=== PATIENT | female | born 1960 | race Caucasian/White ===

== ENCOUNTER → 2024-12-23 14:52 | Outpatient (CLI) | payer OTHER, SELFPAY ==
--- NOTE | 2024-12-23 | DI.MRI.S_ITS ---
PROCEDURE: MR CERVICAL SPINE WO CON INDICATIONS: radiculopathy TECHNIQUE: Noncontrast sagittal T1 spin echo and T2 fast spin echo, sagittal STIR, foraminal oblique sagittal T2 fast spin echo, and axial gradient echo or T2 fast spin echo through the cervical spine. COMPARISON: None. FINDINGS: Image quality: Excellent. Alignment and Curvature: Reversal of the usual cervical lordosis centered at C4-5. No sagittal listhesis. Bone Marrow: Marrow demonstrates normal overall signal. Spinal Cord: Visualized spinal cord has normal size and signal. No cerebellar tonsillar herniation. Paraspinous Soft Tissues: No paravertebral masses. Prevertebral soft tissues are normal in thickness. C2-C3: Normal appearance. C3-C4: Degenerated disc osteophyte complex indents the anterior thecal sac but does not result in significant spinal canal stenosis. No neural foraminal stenosis. C4-C5: Mild spinal canal stenosis due to degenerate disc osteophyte complex. Bilateral moderate neural foraminal stenosis due to uncovertebral greater than facet arthrosis. C5-C6: Degenerated disc osteophyte complex indents the anterior thecal sac but does not result in significant spinal canal stenosis. Mild bilateral neural foraminal stenosis due to uncovertebral and facet arthrosis. C6-C7: Normal appearance. C7-T1: Normal appearance. IMPRESSION: 1. Mild spinal canal stenosis at C4-5 with multilevel degenerated discs. 2. Moderate neural foraminal stenosis bilaterally at C4-5 and mild bilaterally at C5-6. Dictated by: Buster Ramos M.D. on 12/23/2024 at 16:03 Approved by: Buster Ramos M.D. on 12/23/2024 at 16:09
--- NOTE | 2024-12-23 15:37 | DI.MRI.S_ITS ---
PROCEDURE: MR LUMBAR SPINE WO CON INDICATIONS: radiculopathy TECHNIQUE: Noncontrast sagittal T1 spin echo and T2 fast echo, sagittal STIR, and T2 fast spin echo through the lumbar spine. In cases with scoliosis, additional coronal T2 fast spin echo may be performed. COMPARISON: None. FINDINGS: Image quality: Excellent. Alignment and Curvature: There is normal bony alignment. Bone Marrow: Marrow is of normal overall signal. No acute vertebral body compression fractures. Spinal Cord: Conus medullaris terminates at the T12-L1 level. Visualized cord demonstrates normal signal and size. Paraspinous Soft Tissues: No paravertebral masses. T12-L1: Normal appearance. L1-L2: Degenerated, asymmetric subarticular and extraforaminal bulging disc which abuts the extraforaminal right L1 nerve. No neural foraminal stenosis. L2-L3: Mild spinal canal stenosis due to a left asymmetric bulging disc, ligamentum flavum thickening, epidural lipomatosis. Mild left neural foraminal stenosis due to subarticular bulging disc. No right neural foraminal stenosis. L3-L4: Moderate left lateral recess and mild spinal canal stenosis due to a a left central to extraforaminal asymmetric bulging disc, ligamentum flavum thickening, and facet arthrosis. Mild bilateral neural foraminal stenosis due to subarticular bulging disc and facet arthrosis. L4-L5: Changes of left laminotomy. No spinal canal stenosis. There is thickening of the right ligamentum flavum. Moderate bilateral neural foraminal stenosis due to facet arthrosis. L5-S1: No spinal canal stenosis. Mild bilateral facet arthrosis. No neural foraminal stenosis. IMPRESSION: 1. Changes of left L4-5 laminotomy. 2. Moderate left lateral recess stenosis at L3-4 with multilevel mild spinal canal stenosis. 3. Multilevel neural foraminal stenosis reaches moderate bilaterally at L4-5, and mild at L2-3 and L3-4. Dictated by: Buster Ramos M.D. on 12/23/2024 at 16:20 Approved by: Buster Ramos M.D. on 12/23/2024 at 16:25
== END ==
LOC: MRI 14:53
PROVIDERS: Family Provider Family Medicine; PCP Family Medicine; Referring Provider Family Medicine; Visit Provider Family Medicine
DX: M54.12 Radiculopathy, cervical region (principal); M54.17 Radiculopathy, lumbosacral region; M48.02 Spinal stenosis, cervical region; M48.061 Spinal stenosis, lumbar region without neurogenic claudication
CPT/HCPCS: 72141; 72148

== ENCOUNTER 2025-03-10 09:48 | Outpatient (CLI) | payer OTHER, SELFPAY ==
[2025-03-10 10:50] VITALS: BP 111/51; PULSE 85; RESP 16; TEMP 36.2; O2SAT 97
[2025-03-10 11:15] VITALS: BP 106/53; PULSE 75; RESP 16; O2SAT 98
[2025-03-10] MEDS: LIDOCAINE 1% (PF) 5 ML 10 ML INJ (11:18)
[2025-03-10 11:20] VITALS: BP 106/63; PULSE 75; RESP 16; O2SAT 99
[2025-03-10 11:24] VITALS: BP 114/57; PULSE 69; RESP 16; O2SAT 97
--- NOTE | 2025-03-10 13:22 | PM.PROC.IR.1 ---
Date/Time/Diagnoses Date of procedure: 03/10/25 Time of procedure: 11:00 Pre-procedure diagnosis: Cervicothoracic radiculopathy Post-procedure diagnosis: same Procedure Notes Procedure: Interlaminar epidural steroid injection C7-T1 Indications: Cervicothoracic radiculopathy Physician: Jasper Christine Total sedation minutes: 0 Complications: none Procedure in detail & Post-procedure care: Patient is here for the planned procedure today as noted. No significant change since the last office visit. For additional clinical scenario please see those office notes. Focused exam: Vital signs reviewed as charted on intake. Gen: Well developed. No acute distress. CV: RRR, no M/R/G Chest: Non-labored breathing, CTAB. Psych: Alert and well-oriented. Mood/Affect: normal. Patient suitable for the planned procedure today: Yes === The following procedure was performed in the office today: Cervical Epidural Steroid Injection with fluoroscopic guidance - Interlaminar approach (33575) Levels Treated: C7-T1 Approach: interlaminar Soft tissue: [1% lidocaine 2 mL] Test dose: 1% lidocaine 1 mL Injectate: [1.5 mL dexamethasone (10mg/mL), 1 mL lidocaine 1%, 1.5 mL normal saline] Fluoroscopy Agent: Isovue 300-M 1.5 mL Notes: 3.5 in 20 gauge Touhy needle utilized and adequate. Preprocedure pain 5/10, postprocedure pain 2/10. Procedure: After discussing the risks, benefits, and alternatives to the procedure, the patient expressed understanding and wished to proceed. The risks include but are not limited to infection, allergic reaction, nerve damage, stroke, paralysis, epidural hematoma, syncope, headache, respiratory or cardiac arrest, spinal cord injury, and scar formation. Informed consent was obtained and all patient questions were answered. The patient was brought to the procedure suite and placed in the prone position. A pre-procedural pause was conducted to verify: correct patient identity, procedure to be performed and as applicable, correct side and site, correct patient position, and any special requirements. Using a paramedian approach from the side noted above, the region overlying the target was localized under fluoroscopic visualization and the soft tissues overlying this structure were infiltrated with the anesthetic listed above. With fluoroscopic guidance, a #20 gauge Tuohy needle (unless otherwise noted) was inserted into the epidural space using a paramedian approach. The epidural space was localized utilizing intermittent multiplanar fluoroscopic guidance and loss of resistance technique. After negative aspiration, the contrast noted above was injected into the epidural space and the flow of contrast was observed, confirming epidural spread without evidence of intravascular or intrathecal spread. Multi-planar radiographs were obtained for documentation purposes. A test dose of lidocaine was given and the patient was observed for 30-60 seconds. There were no adverse reactions noted. Subsequently, the injectate as noted above was administered into the level noted above. The patient tolerated the procedure well and was discharged after an appropriate period of observation. If there are any complications, the patient was instructed to call us. The patient is to follow-up with the requesting provider in 2-3 weeks/as planned. This note was compiled using voice recognition software and therefore may contain typos. Please contact the author with any questions or concerns.
--- OUTSIDE RECORDS SUMMARY | 2025-03-12 14:34 | XMS_ITS | Encounter Summary ---
Author Organization [facility] Address [facility] [address] Care Team Providers Care Senior Clerk Name Role Phone Ronaldo Gibbs MD Primary Care Provider [phone] Encounter Details Date Type Department Care Team (Late st Contact Info) Description 06/26/2021 Scanned Document SCANNED ONLY Scanned, Document Social History Tobacco Use Types Packs/Day Years Used Date Smoking Tobacco: Never Assessed Comments Unknown Sex and Gender Information Value Date Recorded Sex Assigned at Not on file Legal Sex Female 6:34 PM PDT Gender Identity Not on file Sexual Orientation Not on file documented as of this encounter Plan of Treatment Not on file documented as of this encounter Visit Diagnoses Not on filedocumented in this encounter Care Teams Senior Clerk Relationship Specialty Start Date End Date Ronaldo Gibbs MD [address] [place] [address] PCP - General Family Medicine 07/18/21 documented as of this encounter
--- OUTSIDE RECORDS SUMMARY | 2025-03-12 14:34 | XMS_ITS | Encounter Summary ---
Author Organization [facility] Address [facility] [address] Care Team Providers Care Heart Doctor Name Role Phone Ronaldo Gibbs MD Primary Care Provider [phone] Encounter Details Date Type Department Care Team (Late st Contact Info) Description 06/21/2021 Scanned Document SCANNED ONLY Scanned, Document Social [...] on filedocumented in this encounter Care Teams Heart Doctor Relationship Specialty Start Date End Date Ronaldo Gibbs MD [address] [place] [id number] PCP - General Family Medicine 07/18/21 documented as of this encounter
--- OUTSIDE RECORDS SUMMARY | 2025-03-12 14:34 | XMS_ITS | Encounter Summary ---
Author Organization [facility] Address [address] [place] [address] Care Team Providers Care Prescription Eyeglass Maker Name Role Phone Ronaldo Gibbs MD Primary Care Provider [phone] Encounter Details Date Type Department Care Team (Latest Contact Info) Description 03/05/2016 [facility] [place] [address] [place], [place] [id number] Ronaldo Gibbs MD [address] [place] [address] Urinary tract infection Social History Tobacco Use Types Packs/Day Years Used Date Smoking Tobacco: Never Assessed Comments Unknown Sex and Gender Information Value Date Recorded Sex Assigned at Not on file Legal Sex Female 6:34 PM PDT Gender Identity Not on file Sexual Orientation Not on file documented as of this encounter Plan of Treatment Not on file documented as of this encounter Procedures Procedure Name Priority Date/Time Associated Diagnosis Comments URINE CULTURE Routine 03/05/2016 2:10 PM PST Urinary tract infection documented in this encounter Results * Urine Culture (03/05/2016 2:10 PM PST) Culture 10,000 - 50,000 cfu/mL Escherichia coli ERROL INTERPRETATION 03/06/2016 10:36 PM [facility] Urine URINE / Unknown 03/05/2016 2 :10 PM PST 03/05/2016 6:07 PM PST Narrative Organism Antibiotic Method Susceptibility Escherichia coli Amoxicillin + Clavulanate ERROL INTERPR ETATION <=2 ug/mL: Susceptible Escherichia coli Ampicillin ERROL INTERPRETATION <=2 ug/mL: Susceptible Escherichia coli Cefazolin ERROL INTERPRETATION <=4 ug/mL: Susceptible Escherichia coli Cefepime ERROL INTERPRETATION <=1 ug/mL: Susceptible Escherichia coli Cefoxitin ERROL INTERPRETATION <=4 ug/mL: Susceptible Escherichia coli Ceftazidime ERROL INTERPRETATION <=1 ug/mL: Susceptible Escherichia coli Ceftriaxone ERROL INTERPRETATION <=1 ug/mL: Susceptible Escherichia coli Ciprofloxacin ERROL INTERPRETATION <=0.25 ug/mL: Susceptible Escherichia coli Ertapenem ERROL INTERPRETATION <=0.5 ug/mL: Susceptible Escherichia coli Gentamicin ERROL INTERPRETATION <=1 ug/mL: Susceptible Escherichia coli Meropenem ERROL INTERPRETATION <=0.25 ug/mL: Susceptible Escherichia coli Nitrofurantoin ERROL INTERPRETATION <=16 ug/mL: Susceptible Escherichia coli Piperacillin + Tazobactam ERROL INTERPR ETATION <=4 ug/mL: Susceptible Escherichia coli Tetracycline ERROL INTERPRETATION <=1 ug/mL: Susceptible Escherichia coli Tobramycin ERROL INTERPRETATION <=1 ug/mL: Susceptible Escherichia coli Trimethoprim + Sulfamethoxazole ERROL INTERPRETATION <=1/19 ug/mL: Susceptible Ronaldo Gibbs MD MICROBIOLOGY - GENERAL ORDERABL ES Final Result [facility] [address] [place] [address] documented in this encounter Visit Diagnoses Diagnosis Urinary tract infection Urinary tract infection, site not specified documented in this encounter Care Teams Prescription Eyeglass Maker Relationship Specialty Start Date End Date Ronaldo Gibbs MD [address] [place] [address] PCP - General Family Medicine 07/18/21 documented as of this encounter
--- OUTSIDE RECORDS SUMMARY | 2025-03-12 14:34 | XMS_ITS | Encounter Summary ---
Author Organization [facility] Address [facility] [address] Care Team Providers Care Linotype Mechanic Name Role Phone Ronaldo Gibbs MD Primary Care Provider [phone] Reason for Referral * Specialty Services (Routine) - Closed Specialty Diagnoses / Procedures Referred By Contvale t Referred To Contact Cardiology Diagnoses Other right bundle-branch block Procedures TX OFFICE/OUTPATIENT ESTABLISHED MOD MDM 30-39 MIN Ronaldo Gibbs MD [address] [place] [address] Phone: tel: fax: CARDIOLOGY - [facility] [address] [address] Phone: tel: fax: Referral ID Status Reason Start Date Expiration Date Visits Re quested Visits Authorized [id number] Closed 07/18/2021 07/18/2022 1 1 Encounter Details Date Type Department Care Team (Latest Contact Info) Description 07/18/2021 Order Full Time Staff Interpreter CARDIOLOGY [facility] [id number] [address] Ronaldo Gibbs MD [address] [place] [address] Other right bundle-branch block Social History Tobacco Use Types Packs/Day Years Used Date Smoking Tobacco: Never Assessed Comments Unknown Sex and Gender Information Value Date Recorded Sex Assigned at Not on file Legal Sex Female 6:34 PM PDT Gender Identity Not on file Sexual Orientation Not on file documented as of this encounter Plan of Treatment Scheduled Referrals Name Type Priority Associated Diagnoses Order Schedule Ambulatory referral to Cardiology Outpatient Referral Routine Other right bundle-branch block Ordered: 07/18/2021 documented as of this encounter Visit Diagnoses Diagnosis Other right bundle-branch block documented in this encounter Care Teams Linotype Mechanic Relationship Specialty Start Date End Date Ronaldo Gibbs MD [address] [place] [address] PCP - General Family Medicine 07/18/21 documented as of this encounter
--- OUTSIDE RECORDS SUMMARY | 2025-03-12 14:34 | XMS_ITS | Encounter Summary ---
Author Organization [facility] Address [facility] [address] Care Team Providers Care Straightening Press Operator Name Role Phone Ronaldo Gibbs MD Primary Care Provider [phone] Encounter Details Date Type Department Care Team (Late st Contact Info) Description 06/19/2021 Scanned Document SCANNED ONLY Scanned, Document Social [...] on filedocumented in this encounter Care Teams Straightening Press Operator Relationship Specialty Start Date End Date Ronaldo Gibbs MD [address] [place] [address] PCP - General Family Medicine 07/18/21 documented as of this encounter
--- OUTSIDE RECORDS SUMMARY | 2025-03-12 14:34 | XMS_ITS | Encounter Summary ---
Author Organization [facility] Address [address] [place] [address] Care Team Providers Care Radiation Safety Officer Name Role Phone Ronaldo Gibbs MD Primary Care Provider [phone] Encounter Details Date Type Department Care Team (Latest Contact Info) Description 10/13/2015 [facility] [place] [address] [place] [id number] Ronaldo Gibbs MD [address] [place] [address] Urinary tract infection Social History Tobacco [...] Date/Time Associated Diagnosis Comments URINE CULTURE Routine 10/13/2015 11:30 AM PDT Urinary tract infection documented in this encounter Results * Urine Culture (10/13/2015 11:30 AM PDT) Culture 10,000 - 50,000 cfu/mL Escherichia coli ERROL INTERPRETATION 10/15/2015 11:25 PM PDT [facility] Urine URINE / Unknown 10/13/2015 1 1:30 AM PDT 10/13/2015 6:01 PM PDT Narrative Organism Antibiotic Method Susceptibility Escherichia coli Amoxicillin + Clavulanate ERROL INTERPR ETATION <=2 ug/mL: Susceptible Escherichia coli Ampicillin ERROL INTERPRETATION 8 ug/mL: Susceptible Escherichia coli Cefazolin ERROL INTERPRETATION <=4 ug/mL Escherichia coli Cefepime ERROL INTERPRETATION <=1 ug/mL: [...] ug/mL: Susceptible Escherichia coli Tetracycline ERROL INTERPRETATION 2 ug/mL: Susceptible Escherichia coli Tobramycin ERROL INTERPRETATION <=1 ug/mL: Susceptible Escherichia coli Trimethoprim + Sulfamethoxazole ERROL INTERPRETATION <=1/19 ug/mL: Susceptible Ronaldo Gibbs MD MICROBIOLOGY - GENERAL ORDERABL ES Final Result [facility] [address] [place], [place] [address] documented in this encounter Visit Diagnoses Diagnosis Urinary tract infection Urinary tract infection, site not specified documented in this encounter Care Teams Radiation Safety Officer Relationship Specialty Start Date End Date Ronaldo Gibbs MD [address] [place] [address] PCP - General Family Medicine 07/18/21 documented as of this encounter
--- OUTSIDE RECORDS SUMMARY | 2025-03-12 14:34 | XMS_ITS | Continuity of Care Document ---
Author Organization [facility], Main Office Address [address] [place] [address] Assessment Encounter Date Assessment Date Assessment LastModified by Organization Details LastModified Time 12/15/2024 12/15/2024 Patient presente d to office today for their Medicare Annual Wellness Visit. Education was provided on healthy nutrition, including a diet rich in fruits and vegetables, minimizing simple carbohydrates, salt, and saturated fats. Encouraged regular cardiovascular exercise such as walking at least 30 minutes daily, 5 times per week. Emphasized preventive health measures and educated pt on fall prevention and community-based lifestyle interventions to help reduce health risks and promote healthy living. chang Not available 12/15/2024 12:36:23 Plan of Treatment Reminders Order Date Submit Date Provider Last Modified By Organization Details Last Modified Time Details Appointments None recorded. Lab fecal occult blood, immunoassay , stool 2024 025 EDMOND [facility], [address] [place], [address], 13:17:48 Referral None recorded. Procedures None recorded. Surgeries None recorded. Imaging DEXA, axial skeleton + vertebral fracture assessment 2024 025 [facility], [address] [place], [address], 23:52:20 electrocard iogram 2024 025 [email or web address] 7 Main Office, [address] [place], [address], 01:59:15 Medication Orders Zepbound 2.5 mg/0.5 mL subcutaneou s solution 2024 025 [facility], [address], [place], [place], [phone], 13:27:32 Patient TargetsNo targets recorded. Patient Instructions Encounter Date Encounter Id Patient Instructions Last Modified By Organization Details Last Modified Time 12/15/2024 [id number] advance care planning: care instructions chang Not available 12/15/2024 13:17:36 Discussed and explained advance directives such as standard forms to the patient. Face to face discussion lasted for a duration of __1_ minutes. chang Not available 12/15/2024 13:26:48 Reason for Referral None Reported. Results Created Date Observation Date Name Description Value Unit Range Abnormal Flag Note LastModifiedBy Organization Detail LastModifiedTime 12/16/19 [facility] stephie lowe am No observ ation record ed. chang Main Office [address] [place] [address], [phone], 12/16/2024 01:59:12 12/16/19 [facility] stephie lowe am No observ ation record ed. chang Not Available 12/20 20:01:32 12/24/19 25 12/23/2024 MRI, cervi john spine , w/o contr ast No observ ation record ed. [email or web address] [place] [address], [address], 12/28/2024 17:30:41 12/24/19 25 12/23/2024 MRI, lumba r spine , w/o contr ast No observ ation record ed. [email or web address] [place] [address] [facility] [address] [place] [address], [address], 12/28/2024 17:30:54 01/15/20 25 01/14/2025 audio gram + tympa nogra m No observ ation record ed. [facility] [address] [place], [address], 02/16/2025 15:02:38 01/20/20 25 01/19/2025 MAMMO , scree yasemin, digit al, bilat eral No observ ation record ed. EDMOND [facility] [address] [place], [address], 02/16/2025 15:02:37 02/04/20 25 02/03/2025 DEXA, axial skele ton + verte bral fract ure asses sment No observ ation record ed. [facility] [address] [place], [address], 02/16/2025 15:02:37 Result Notes None recorded. Problems Name Problem SNOMED Code Status Onset Date Resolution Date Notes Provider Name and Address Organization Details Recorded Time Migraine 30829623 Active Ronaldo Gibbs MD [address] [place] [address], [phone] , [facility] 19:16:17 Insomnia 055947854 Active Ronaldo Gibbs MD [address] [place] [address], [phone] , [facility] 19:16:37 Problem Notes None recorded. Procedures Surgical History Date Name Laterality Status Provider Name and Address Organization Details Recorded Time myringoplasty completed Ronaldo Gibbs MD [address] [place] [address], [phone], [facility] 04/04/2021 19:27:20 Back Surgery completed Ronaldo Gibbs MD [address] [place] [address], [phone], [facility] 04/04/2021 19:27:30 Hysterectomy completed Ronaldo Gibbs MD [address] [place] [address], [phone], [facility] 04/04/2021 19:27:50 Appendectomy completed Ronaldo Gibbs MD [address] [place] [address], [phone], [facility] 04/04/2021 19:27:56 reduction plasty of bilateral breasts completed Ronaldo Gibbs MD [address] [place] [address], [phone], [facility] 04/04/2021 19:28:07 Imaging Results None recorded. Procedure Notes None recorded. Medical Equipment None Reported. Allergies No known drug allergies Medications Name Sig Start Date Stop Date Status Note LastModified by Organization Details LastModified Time methocarbam ol 500 mg tablet TAKE TWO TABLETS BY MOUTH FOUR TIMES DAILY NEEDED 2024 active Not Available Not Available Not Avai lable neomycin-po lymyxin-hyd rocort 3.5 mg/mL-10,00 0 unit/mL-1 % ear solution 06/19 completed Not Available Not Available Not Available prednisone 10 mg tablet Take 4 tablets by mouth once daily for 2 days, then 3 tablets daily for 2 days,then 2 tablets daily for 2 days, 1 tablet daily for 2 days then (1/2) tablet daily for 2 days active Not Available Not Available No t Available trazodone 50 mg tablet TAKE TWO TABLETS BY MOUTH EVERY DAY AT BEDTIME active Not Available Not Available No t Available azithromyci n 250 mg tablet TAKE 2 TABLETS (500 MG) BY ORAL ROUTE ONCE DAILY FOR 1 DAY THEN 1 TABLET (250 MG) BY ORAL ROUTE ONCE DAILY FOR 4 DAYS 09/22 completed Not Available Not Available Not Available fluconazole 150 mg tablet Take 1 tablet every other day by oral route. 09/22 completed Not Available Not Available Not Available sumatriptan 100 mg tablet TAKE ONE-HALF TO ONE TABLET BY MOUTH AT ONSET OF MIGRAINE. MAY REPEAT AFTER 2 HOURS -- MAX OF 2 TABLETS IN 24 HOURS 2024 active Not Available Not Available Not Avai lable phentermine 15 mg capsule TAKE ONE CAPSULE BY MOUTH EVERY DAY 11/30 completed Not Available Not Available Not Available omeprazole 40 mg capsule,del ayed release Take 1 capsule every day by oral route. 11/30 completed Not Available Not Available Not Available triamcinolo ne acetonide 0.1 % topical cream Apply to affected area 1-2 x daily 01/17 completed Not Available Not Available Not Available codeine 10 mg-guaifene sin 100 mg/5 mL oral liquid TAKE 10ml BY MOUTH EVERY 4 HOURS NEEDED FOR cough active Not Available Not Available No t Available estriol micronized (bulk) 100 % powder 1 mg vag supposito r, insert vaginally 2-3x/week 2020 active Not Available Not Available Not Avai lable neomycin-po lymyxin-hyd rocort 3.5 mg-10,000 unit/mL-1 % ear drops,susp INSTILL 4 DROPS INTO AFFECTED EAR(S) BY OTIC ROUTE 3 TIMES PER DAY 06/19 completed Not Available Not Available Not Available Ciprodex 0.3 %-0.1 % ear drops,suspe nsion INSTILL 4 DROPS INTO AFFECTED EAR(S) BY OTIC ROUTE 2 TIMES PER DAY FOR 7 DAYS 06/19 completed Not Available Not Available Not Available nitrofurant oin monohydrate /macrocryst als 100 mg capsule Take 1 capsule every 12 hours by oral route. 01/17 completed Not Available Not Available Not Available mometasone 0.1 % topical solution 01/17 completed Not Available Not Available Not Available Zepbound 2.5 mg/0.5 mL subcutaneou s solution Inject 0.5 mL every week by subcutane ous route for 28 days. 2024 active Not Available Not Available Not Avai lable Zepbound 5 mg/0.5 mL subcutaneou s solution Inject 5 mg every week by subcutane ous route. 2024 active Not Available Not Available Not Avai lable Vitals Date Recorded Body height Body mass index (BMI) Body weight Systolic And Diastolic Provider Name and Address Organization Details Last Updated DateTime 12/15/2024 165.1 cm 25.5 kg/m2 87641.63 g 102/68 mm[Hg] Ronaldo Gibbs MD [address] [place], [address], [facility] 12/15/2024 13:35:16 Social History Question Answer Notes LastModified by Organizat ion Details LastModified Time Tobacco Smoking Status Former Smoker Ronaldo Gibbs MD [address] [place], [address], [place] [facility] 04/04/2021 19:26:09 Do You Have An Advance Directive? No [email or web address] Information not available 10/31/2023 What Is The Highest Grade Or Level Of School You Have Completed Or The Highest Degree You Have Received? [id number] [email or web address] Information not available 04/04/2021 When Did You Quit Smoking? 16+yearssinc elastcigaret te [email or web address] Information not available 04/04/2021 Do You Have A Medical Power Of Energy Advisor? No [email or web address] Information not available 10/31/2023 What Was The Date Of Your Most Recent Tobacco Screening? 11/30/2024 [email or web address] Information not available 11/30/2024 How Many Children Do You Have? 3 [email or web address] Information not available 04/04/2021 What Is Your Relationship Status? Information not available 04/04/2021 Has Tobacco Cessation Counseling Been Provided? No [email or web address] Information not available 06/15/2022 Sex: Unknown Functional Status Question Answer Note LastModified by Organizat ion Details LastModified Time Do you use any illicit or recreational drugs? No [email or web address] Information not available 04/04/2021 Do you or have you ever used any other forms of tobacco or nicotine? No [email or web address] Information not available 04/04/2021 What is your level of alcohol consumption? 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 Family History Relationship Description Onset Age of this Age Resolved Age Notes LastModified by Organization Details LastModified Time Maternal Grandmother Malignant neoplasm of breast chang Not available 04/04 19:24:36 Maternal Aunt Malignant neoplasm of breast chang Not available 04/04 19:24:36 Medical History Condition Response Headaches Y Gynecological HistoryNo gynecological history recorded. Obstetrics History GPAL:G 0 P 0 0 0 0 Immunizations Vaccine Type Date Status Note Provider Nam e and Address Organization Details Recorded Time COVID-19, mRNA, LNP-S, PF, 100 mcg/0.5mL dose or 50 mcg/0.25mL dose 1 completed Not Available [facility] 12/15/2024 12:23:24 COVID-19, mRNA, LNP-S, PF, 100 mcg/0.5mL dose or 50 mcg/0.25mL dose 1 completed Not Available [facility] 12/15/2024 12:23:24 COVID-19, mRNA, LNP-S, PF, 100 mcg/0.5mL dose or 50 mcg/0.25mL dose 1 completed Not Available [facility] 12/15/2024 12:23:24 Influenza, split virus, trivalent, PF 1 completed Not Available [facility] 12/15/2024 12:23:24 Influenza, split virus, trivalent, PF 4 completed Not Available [facility] 12/15/2024 12:23:24 Influenza, split virus, quadrivalent, PF 2 completed Not Available [facility] 12/15/2024 12:23:24 Influenza, MDCK, quadrivalent, PF 1 completed Not Available [facility] 12/15/2024 12:23:24 Tdap 4 completed Not Available [facility] 12/15/2024 12:23:24 Influenza, split virus, quadrivalent, preservative 8 completed Not Available [facility] 12/15/2024 12:23:24 Influenza, split virus, quadrivalent, PF 9 completed Not Available [facility] 12/15/2024 12:23:24 Influenza, split virus, quadrivalent, PF 0 completed Not Available [facility] 12/15/2024 12:23:24 influenza, seasonal, intradermal, preservative free 2 completed Not Available [facility] 12/15/2024 12:23:24 influenza, seasonal, intradermal, preservative free 3 completed Not Available [facility] 12/15/2024 12:23:24 zoster recombinant 0 completed Not Available [facility] 12/15/2024 12:23:24 zoster recombinant 1 completed Not Available [facility] 12/15/2024 12:23:24 Past Encounters Encounter ID Performer Location Encounter Start Date Encounter Closed Date Diagnosis/Indication Diagnosis SNOMED-CT Code Diagnosis ICD10 Code Diagnosis IMO Codes Diagnosis Note [id number] Ronaldo Gibbs MD Main Office [address] [place] [address] 11/30/2024 15:56:12 11/30/2024 16:39:45 Lumbosacral radiculopathy 5864217 M54.17 85036 ongoing issue with this remote history of severe pain and procedure, hoping to avoid any procedures at this point, we will go ahead and get plain films to be sure there is not been any significan t changes and she will try a muscle relaxer for now, also get back to exercises and consider formal physical therapy... ...today, will refill the muscle relaxer, prior x-rays confirmed degenerati ve changes without significan t deformitie s, will work on home exercises. ..today, pain radiating left leg down to ankle on outside, not improving with conservati ve care, will get imaging, refilled muscle relaxer as it does help her to get rest at night Left cervi john root neuropathy [id number] 1733332 M54.12 [id number] Patient with known history of lumbar degenerati ve disc disease and prior back surgery with increasing neck pain and left hand radicular symptoms as well as left leg radicular symptoms, we'll go ahead and get neck imaging to look for possible causes of her current symptoms [id number] Ronaldo Gibbs MD Main Office [address] [place] [address] 12/15/2024 12:22:40 12/15/2024 20:51:01 Screening for cardiovascular system disease 243739965 Z13.6 checked screening EKG, shows sinus rhythm with incomplete right bundle branch block, it appears stable compared to past EKG Screening for malignant neoplasm of colon 685060051 Z12.11 did stool test last year, had hard time doing prep for colonoscop y in the past, she will think about which one she wants to do this year...Tod ay, patient prefers to simply do stool testing due to past difficulti es with colonoscop y Screening mammography 24 131414 Z12.31 scheduled with [facility] next month Well adult 415335299 Z00 .00 [id number] review general preventati ve issues, including healthy diet and exercise, generally up-to-date on preventati ve issues except as below Postmenopa usal osteoporosis 868471841 M81.0 2201 Due for screening test Obesity 432511613 E66.9 [id number] Patient continues to have difficulty with losing weight, she is interested in trying medication to help with this, we reviewed available options, 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, she is welcome to come by after she gets the medication so we can review how to give the an ejection, we also talked about the option to titrate upwards on the dose as needed to help with further weight loss Health Concerns Section Related Observation LastModified by Organization Detai ls LastModified Time None Recorded Concern Status LastModified by Organization Details LastModified Time None Recorded Payers Encounter Date Sequence Insurance Name Policy Number Policy Pantoja Covered Member ID Pantoja Member ID Guarantor Name 12/15/2024 1 [employer] (MEDICARE REPLACEMENT/ ADVANTAGE - HMO) Stephy Fuentes [id number] Stephy Fuentes Notes Date Note Type Note Provider Name and Address Organization Details Recorded Time 5 text/html Medicare Annual Wellness VisitReported by PatientSocial/Behavioral HistoryFor diet and nutrition, patient reportshealthy dietanddiscussed vitamin and supplement use. For fracture risk, patient reportsno history of fractures,no recent explained fracture, andno sudden unexplained fractures. For physical activity, patient reportsdiscussed weightbearing activitiesanddiscussed exercise habits.Mental Status:For depression risk, patient reportsnever feels sad, empty, or tearful,no loss of interest in activities,no significant changes in weight,no sleep disturbances or insomnia,no agitation,no loss of energy,no feelings of worthlessness or guilt,no thoughts of suicide,no history of depression, andno history of mood disorders. For orientation, patient reportsno disorientation to time,no disorientation to date, andno disorientation to place. For concentration and memory, patient reportsno decreased concentrating ability,no memory lapses or loss, anddoes not forget words. For speech/motor difficulties, patient reportsno speech difficulties,no difficulty expressing formulated concepts,no difficulty with fine manipulative tasks,no difficulty writing/copying,no slowed reaction time, anddoes not knock things over when trying to pick them up.Functional AbilityFor hearing, patient reportsgetting progressively worse. For vision, patient reportsworsening. For activities of daily living, patient reportsable to bathe with limited or no assistance,able to contol urination and bowels,able to dress with limited or no assistance,able to feed self with limited or no assistance,able to get out of chair or bed with limited or no assistance,able to groom with limited or no assistance, andable to toilet with limited or no assistance. For instrumental activities of daily living, patient reportsable to do house work with limited or no assistance,able to grocery shop with limited or no assistance,able to manage medications with limited or no assistance,able to manage money with limited or no assistance,able to prepare meals with limited or no assistance, andable to use the phone with limited or no assistance. For falls risk assessment, patient reportsno frequent falls while walking,no fall in the past year,no fall since last visit, andno dizziness/vertigo. For home safety, patient reportsno unsafe magdalena hazzards,no unsafe stairs,no unsafe gas appliances,working smoke/co detectors,wears protective head gear for biking/high velocity,use of seatbelts,no vision or hearing loss while driving,good lighting in the home, andreviewed sun protection. Here for initial Medicare wellness visit. No c/o. Rnoaldo Gibbs MD [address] [place] [address], [phone], [facility] 12/16/2024 02:03:57 OBGyn Episode No OBEpisode recorded.
--- OUTSIDE RECORDS SUMMARY | 2025-03-12 14:35 | XMS_ITS | Encounter Summary ---
Author Organization [facility] Address [address] [place] [address] Care Team Providers Care Shell Trim Operator Name Role Phone Pcp, None Selected Primary Care Provider Unavail able Encounter Details Date Type Department Care Team (Late st Contact Info) Description 07/11/2021 Abstract [facility] [place] [address] [place] [address] [place] [phone] Bib Gee MD [address] [place] [address] Social History Tobacco Use Types Packs/Day Years Used Date Smoking Tobacco: Former Cigarettes 0.3 10 1 8 - 1987 Smokeless Tobacco: Never Alcohol Use Standard Drinks/Week Comments Yes 0 (1 standard drink = 0.6 oz pur e alcohol) 2-3 drinks twice a month Comments Unknown Sex and Gender Information Value Date Recorded Sex Assigned at Not on file Legal Sex Female 4:01 PM PST Gender Identity Not on file Sexual Orientation Not on file documented as of this encounter Functional Status documented as of this encounter Plan of Treatment Not on file documented as of this encounter Visit Diagnoses Not on filedocumented in this encounter Care Teams Shell Trim Operator Relationship Specialty Start Date End Date Pcp, None Selected PCP - General 08/06/24 documented as of this encounter
--- OUTSIDE RECORDS SUMMARY | 2025-03-12 14:35 | XMS_ITS | Clinical Summary ---
Author Organization [facility] Address [address] [place] [address] Care Team Providers Care Patient Service Specialist Name Role Phone Esperanza Henley MD Primary Care Provider [phone] Allergies No known active allergies Medications Cholecalciferol (VITAMIN D) 1000 units Oral Tab Take 1,000 Units by mouth daily. Active Zoster Vac Recomb Adjuvanted 50 MCG/0.5ML Intramuscular Recon SuspIndications:N eed for shingles vaccine Inject 0.5 mL (50 mcg) intramuscularly once. Administer a second dose 2 to 6 months after the first dose. 1 vial 1 02/12/20 18 Active azithromycin 250 MG tabletIndications :Atypical pneumonia Take 2 tablets today, then take 1 tablet every day until gone. 6 tablet 05/13/19 20 Active albuterol HFA 108 (90 Base) MCG/ACT inhalerIndication s:Atypical pneumonia Inhale 2 puffs by mouth every 4 hours as needed for shortness of breath/wheezing. 1 Inhaler 2 05/13/19 20 Active guaiFENesin-codei ne 100-10 MG/5ML syrupIndications: Atypical pneumonia Take 5-10 mL by mouth every 4 hours as needed for cough. 240 mL 05/22/19 20 Active SUMAtriptan (Imitrex) 100 MG tabletIndications :Other migraine without status migrainosus, not intractable Take 1 tablet (100 mg) by mouth every 2 hours as needed for migraines. Take one-half to one tablet by mouth at onset of headache Take at onset of migraine. May repeat x 1 dose. 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 of spine with radiculopathy, cerv ical region 04/09/2016 Immunizations Immunization Administration Dates Next Due Influenza quadrivalent 01/27/2018 Influenza quadrivalent PF 01/08/2020,01/17/2019, 02/14/2017 Influenza trivalent PF 02/05/2014,03/12/2011 Influenza trivalent intradermal 03/03/2013,02/11 Tdap 09/21/2013 Family History Medical History Relation Comments Heart Attack Father Heart Disease Father Stroke Father Cancer Maternal Aunt Breast Cancer Maternal Grandmother Cancer Maternal Grandmother Hearing Loss Maternal Grandmother Stroke Maternal Grandmother Cancer Maternal Uncle Hearing Loss Mother Relation Status Comments Father Maternal Aunt Maternal Grandmother Maternal Uncle Mother Social History Tobacco Use Types Packs/Day Years Used Date Smoking Tobacco: Former Cigarettes Q uit: 1989 Smokeless Tobacco: Never Alcohol Use Standard Drinks/Week Comments Yes 0 (1 standard drink = 0.6 oz pur e alcohol) Occasional PHQ-2 Answer Date Recorded PHQ-2 Score 0 06/03/2018 Comments No Sex and Gender Information Value Date Recorded Sex Assigned at Not on file Legal Sex Female 12:31 PM PST Gender Identity Not on file Sexual Orientation Not on file 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 Start 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[employer]) Not on file Not on file Not on file Last Filed Vital Signs Vital Sign Reading Time Taken Comments Blood Pressure 118/73 05/13/2019 3:06 PM PST Pulse 87 05/13/2019 3:06 PM PST Temperature 36.6 C (97.8 F) 05/13/2019 3:06 PM PST Respiratory Rate 16 05/13/2019 3:06 PM PST Oxygen Saturation 94% 05/13/2019 3:06 PM PST Inhaled Oxygen Concentration - - Weight 70.7 kg (155 lb 12.8 oz) 05/13/2019 3:06 PM PST Height 162.6 cm (5' 4) 05/13/2019 3:06 PM PST Body Mass Index 26.74 05/13/2019 3:06 PM PST Plan of Treatment Not on file Care Teams Patient Service Specialist Relationship Specialty Start Date End Date Esperanza Henley MD PCP - General Family Practice 02/11/18
--- OUTSIDE RECORDS SUMMARY | 2025-03-12 14:35 | XMS_ITS | Clinical Summary ---
Author Organization [facility] Address [address] [place] [address] Care Team Providers Care Physiotherapy Assistant Name Role Phone Hoang Zhou MD Unavailable [phone] Source Comments NOTE: The information displayed by Care Everywhere is extracted from the complete medical record and may not identify all current or past patient conditions.[facility] [place] Allergies No known active allergies Medications traZODone (DESYREL) 50 mg tablet 01/23/2016 Active nitrofurantoin macrocrystal-mo nohydrate (MACROBID) 100 mg capsule (12 hr) 03/05/2016 Active nortriptyline (PAMELOR) 10 mg capsuleIndicati ons:Osteoarthri tis of spine with radiculopathy, cervical region Take 3 capsules at bedtime. 270 capsule 4 06/27/2016 Active Active Problems Problem Noted Date Diagnosed Date Osteoarthritis of spine with radiculopathy, cerv ical region 04/09/2016 Immunizations Immunization Administration Dates Next Due *STANDARD DOSE SYRINGE* (Flu ARIX,FluLAVAL,FluZONE) (6+ mos) TRI 02/05/2014,03/12/2011 *STANDARD DOSE SYRINGE* (Flu LAVAL,FluZONE,FluARIX or AFLURIA) (6+ mos) QUAD 01/17/2019 *VIAL* FluZONE/FluLAVAL (3+ yrs) QUAD 01/27/2018 Flu, 18-64 years, INTRADERMAL, SYRINGE, TRI 02/20,02/12/2012 Influenza (0.5 PF) 03/12/2011 Tdap (Tetanus, Diphtheria, acellular Pertussis) 09/21/2013 Social History Tobacco Use Types Packs/Day Years Used Date Smoking Tobacco: Never Comments Unknown Sex and Gender Information Value Date Recorded Sex Assigned at Not on file Legal Sex Female 11:08 PM PST Gender Identity Not on file Sexual Orientation Not on file Last Filed Vital Signs Vital Sign Reading Time Taken Comments Blood Pressure - - Pulse - - Temperature - - Respiratory Rate - - Oxygen Saturation - - Inhaled Oxygen Concentration - - Weight 65.8 kg (145 lb) 04/09/2016 10:17 AM PST Height 162.6 cm (5' 4) 04/09/2016 10:17 AM PST Body Mass Index 24.89 04/09/2016 10:17 AM PST Plan of Treatment Health Maintenance Due Date Last Done Comments Adult HIV Screen (1-time) 08/23/1974 Hep C Screening (1-time) 08/23/1977 Breast Cancer Screening: Mammogram 1999 Vaccine: Pneumococcal (1 of 1 - PCV) 08/23/2009 Vaccine: Shingles (1 of 2) 08/23/2009 Vaccine: QLrP-Xksb-Dq (2 - T d or Tdap) 09/22/2023 09/21/2013 FLU VACCINE (#1) 12/21/2024 01/17/2019, 11/2017, 02/05/2014, Additional history exists Vaccine: RSV (1 - 1-dose 75+ series) 08/23/2034 Advance Directives For more information, please contact: [phone] Documents on File Type Date Recorded 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
--- OUTSIDE RECORDS SUMMARY | 2025-03-12 14:35 | XMS_ITS | Encounter Summary ---
Author Organization [facility] Address [address] [place] [address] Care Team Providers Care Chief Librarian Work With Blind Name Role Phone Pcp, None Selected Primary Care Provider Unavail able Encounter Details Date Type Department Care Team (Late st Contact Info) Description 10/04/2023 Abstract [facility] [address] [facility], [address] [place] [address] Trent Robledo MD [address] [place] [address] Social History Tobacco Use Types Packs/Day Years Used Date Smoking Tobacco: Former Cigarettes 0.3 10 1 978 - 1988 Smokeless Tobacco: Never Alcohol Use Standard Drinks/Week Comments Not Currently 0 (1 standard drink = 0.6 oz pur e alcohol) Comments Unknown Sex and Gender Information Value Date Recorded Sex Assigned at Not on file Legal Sex Female 4:01 PM PST Gender Identity Not on file Sexual Orientation Not on file documented as of this encounter Plan of Treatment Not on file documented as of this encounter Visit Diagnoses Not on filedocumented in this encounter Care Teams Chief Librarian Work With Blind Relationship Specialty Start Date End Date Pcp, None Selected PCP - General 08/06/24 documented as of this encounter
--- OUTSIDE RECORDS SUMMARY | 2025-03-12 14:35 | XMS_ITS | Continuity of Care Document ---
Author Organization [facility], Main Office Address [address] [place] [address] Assessment No assessment recorded. Plan of Treatment Reminders Order Date Submit Date Provider Last Modified By Organization Details Last Modified Time Details Appointments None recorded. Lab None recorded. Referral physical therapist referral 2024 025 [facility], [address], [place], [address], 13:57:11 pain management referral 2024 025 [facility] Rufino Garza , [address], [place], [address], 10:53:12 physical therapist referral 2024 025 [facility], [address], [place], [address], 11:06:51 pain management referral 2024 025 [facility] Rufino Garza , [address], [place], [address], 10:59:52 Procedures None recorded. Surgeries None recorded. Imaging None recorded. Medication Orders prednisone 10 mg tablet 2024 025 [facility], [address] [place] [address], [address], 18:07:45 Patient TargetsNo targets recorded. Patient InstructionsNo instructions recorded. Reason for Referral Physical Therapist Referral for Left cervical root neuropathy Referring Physician: [facility], Encounter Date: 12/28/2024 Physical Therapist Referral for Lumbosacral radiculopathy Referring Physician: [facility], Encounter Date: 12/28/2024 Pain Management Referral for Left cervical root neuropathy Referring Physician: [facility], Encounter Date: 12/28/2024 Pain Management Referral for Lumbosacral radiculopathy Referring Physician: [facility], Encounter Date: 12/28/2024 Results Created Date Observation Date Name Description Value Unit Range Abnormal Flag Note LastModifiedBy Organization Detail LastModifiedTime 12/16/19 elect rocfederico morrowgr am No observ ation record ed. [email or web address] Main Office [address] [place] [address], [phone], 12/16/2024 01:59:12 12/16/19 elect rocfederico lowe am No observ ation record ed. chang Not Available 12/20 20:01:32 12/24/1912/23/2024 MRI, cervi john spine , w/o contr ast No observ ation record ed. [address], [address], 12/28/2024 17:30:41 12/24/1912/23/2024 MRI, lumba r spine , w/o contr ast No observ ation record ed. [address] [facility] [address] [place] [address], [address], 12/28/2024 17:30:54 01/15/20 25 01/14/2025 audio gram + tympa nogra m No observ ation record ed. [facility] [address] [place], [address], 02/16/2025 15:02:38 01/20/20 25 01/19/2025 MAMMO , scree yasemin, digit al, bilat eral No observ ation record ed. [facility] [address], [place], [address], 02/16/2025 15:02:37 02/04/20 25 02/03/2025 DEXA, axial skele ton + verte bral fract ure asses sment No observ ation record ed. [facility] [address] [place], [address], 02/16/2025 15:02:37 Result Notes None recorded. Problems Name Problem SNOMED Code Status Onset Date Resolution Date Notes Provider Name and Address Organization Details Recorded Time Migraine 21989347 Active Ronaldo Gibbs MD [address] [place] [address], [phone] , [facility] 19:16:17 Insomnia 511737813 Active Ronaldo Gibbs MD [address] [place] [address], [phone] , [facility] 19:16:37 Problem Notes None recorded. Procedures Surgical History Date Name Laterality Status Provider Name and Address Organization Details Recorded Time myringoplasty completed Ronaldo Gibbs MD [address] [place] [address], [phone], [facility] 04/04/2021 19:27:20 Back Surgery completed Ronaldo Gibbs MD [address] [place] [address], [phone], [facility] 04/04/2021 19:27:30 Hysterectomy completed Ronaldo Gibbs MD [address] [place] [address], [phone], [facility] 04/04/2021 19:27:50 Appendectomy completed Ronaldo Gibbs MD [address] [place] [address], [phone], [facility] 04/04/2021 19:27:56 reduction plasty of bilateral breasts completed Ronaldo Gibbs MD [address] [place], [address], [facility] 04/04/2021 19:28:07 Imaging Results None recorded. [...] Avai lable Vitals Date Recorded Body height Provider Name an d Address Organization Details Last Updated DateTime 12/28/2024 165.1 cm Ronaldo Gibbs MD [address] [place], [address] 12/28/2024 17:26:40 Social History Question Answer Notes LastModified by Organizat ion Details LastModified Time Tobacco Smoking Status Former Smoker Ronaldo Gibbs MD [address] [place], [address], [facility] 04/04/2021 19:26:09 Do You Have An Advance Directive? No chang Information not available 10/31/2023 What Is The Highest Grade Or Level Of School You Have Completed Or The Highest Degree You Have Received? [id number] [email or web address] Information not available 04/04/2021 When Did You Quit Smoking? 16+yearssinc elastcigaret te [email or web address] Information not available 04/04/2021 Do You Have A Medical Power Of Supervisor Billposting? No [email or web address] Information not available 10/31/2023 What Was The Date Of Your Most Recent Tobacco Screening? 11/30/2024 [email or web address] Information not available 11/30/2024 How Many Children Do You Have? 3 [email or web address] Information not available 04/04/2021 What Is Your Relationship Status? [email or web address] Information not available 04/04/2021 Has Tobacco Cessation Counseling Been Provided? No [email or web address] Information not available 06/15/2022 Sex: Unknown Functional Status Question Answer Note LastModified by Organizat ion Details LastModified Time Do you use any illicit or recreational drugs? No [email or web address] Information not available 04/04/2021 Do you or have you ever used any other forms of tobacco or nicotine? No [email or web address] Information not available 04/04/2021 What is your level of alcohol consumption? 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 Family History Relationship Description Onset Age of this Age Resolved Age Notes LastModified by Organization Details LastModified Time Maternal Grandmother Malignant neoplasm of breast [email or web address] Not available 04/04 19:24:36 Maternal Aunt Malignant neoplasm of breast [email or web address] Not available 04/04 19:24:36 Medical History Condition Response Headaches Y Gynecological HistoryNo gynecological history recorded. Obstetrics History GPAL:G 0 P 0 0 0 0 Immunizations Vaccine Type Date Status Note Provider Nam e and Address Organization Details Recorded Time COVID-19, mRNA, LNP-S, PF, 100 mcg/0.5mL dose or 50 mcg/0.25mL dose 1 completed Not Available [facility] 12/15/2024 12:23:24 COVID-19, mRNA, LNP-S, PF, 100 mcg/0.5mL dose or 50 mcg/0.25mL dose 1 completed Not Available [facility] 12/15/2024 12:23:24 COVID-19, mRNA, LNP-S, PF, 100 mcg/0.5mL dose or 50 mcg/0.25mL dose 1 completed Not Available [facility] 12/15/2024 12:23:24 Influenza, split virus, trivalent, PF 1 completed Not Available [facility] 12/15/2024 12:23:24 Influenza, split virus, trivalent, PF 4 completed Not Available [facility] 12/15/2024 12:23:24 Influenza, split virus, quadrivalent, PF 2 completed Not Available [facility] 12/15/2024 12:23:24 Influenza, MDCK, quadrivalent, PF 1 completed Not Available [facility] 12/15/2024 12:23:24 Tdap 4 completed Not Available [facility] 12/15/2024 12:23:24 Influenza, split virus, quadrivalent, preservative 8 completed Not Available [facility] 12/15/2024 12:23:24 Influenza, split virus, quadrivalent, PF 9 completed Not Available [facility] 12/15/2024 12:23:24 Influenza, split virus, quadrivalent, PF 0 completed Not Available [facility] 12/15/2024 12:23:24 influenza, seasonal, intradermal, preservative free 2 completed Not Available [facility] 12/15/2024 12:23:24 influenza, seasonal, intradermal, preservative free 3 completed Not Available [facility] 12/15/2024 12:23:24 zoster recombinant 0 completed Not Available [facility] 12/15/2024 12:23:24 zoster recombinant 1 completed Not Available [facility] 12/15/2024 12:23:24 Past Encounters Encounter ID Performer Location Encounter Start Date Encounter Closed Date Diagnosis/Indication Diagnosis SNOMED-CT Code Diagnosis ICD10 Code Diagnosis IMO Codes Diagnosis Note [id number] Ronaldo Gibbs MD Main Office [address] [place] [address] 11/30/2024 15:56:12 11/30/2024 16:39:45 Lumbosacral radiculopathy 6585495 M54.17 93577 ongoing issue with this remote history of [...] at night Left cervi john root neuropathy [id number] 7139557 M54.12 [id number] Patient with known history of lumbar degenerati ve disc disease and prior back surgery with increasing neck pain and left hand radicular symptoms as well as left leg radicular symptoms, we'll go ahead and get neck imaging to look for possible causes of her current symptoms [id number] Ronaldo Gibbs MD Main Office [address] [place] [address] 12/15/2024 12:22:40 12/15/2024 20:51:01 Screening for cardiovascular system disease 611123070 Z13.6 checked screening EKG, shows sinus rhythm with incomplete right bundle branch block, it appears stable compared to past EKG Screening for malignant neoplasm of colon 435000111 Z12.11 did stool test last year, had hard time doing prep for colonoscop y in the past, she will think about which one she wants to do this year...Todanny matos, patient prefers to simply do stool testing due to past difficulti es with colonoscop y Screening mammography 24 170360 Z12.31 scheduled with [facility] next month Well adult 629033993 Z00 .00 [id number] review general preventati ve issues, including healthy diet and exercise, generally up-to-date on preventati ve issues except as below Postmenopa usal osteoporosis 785157346 M81.0 2201 Due for screening test Obesity 336866519 E66.9 [id number] Patient continues to have difficulty with losing [...] needed to help with further weight loss [id number] Ronaldo Gibbs MD Main Office [address] [place] [address] 12/28/2024 17:21:12 12/28/2024 20:41:54 Lumbosacral radiculopathy 9229470 M54.17 02523 ongoing issue with this remote history of severe pain and procedure, hoping to avoid any procedures at this point, we will go ahead and get plain films to be sure there is not been any significan t changes and she will try a muscle relaxer for now, also get back to exercises and consider formal physical therapy... ...will refill the muscle relaxer, prior x-rays confirmed degenerati ve changes without significan t deformitie s, will work on home exercises. ..today, pain radiating left leg down to ankle on outside, not improving with conservati ve care, will get imaging, refilled muscle relaxer as it does help her to get rest at night...To day, MRI of the lumbar spine confirms known degenerati ve disc disease with some areas of foraminal narrowing, will refer to PT for now but also for consult with interior decorator painting Left cervi john root neuropathy [id number] 9858537 M54.12 [id number] Patient with known history of lumbar degenerati ve disc disease and prior back surgery with increasing neck pain and left hand radicular symptoms as well as left leg radicular symptoms, we'll go ahead and get neck imaging to look for possible causes of her current symptoms.. ..Today, reviewed MRI which showed loss of cervical lordosis as well as degenerati ve changes, see report, patient is willing to try physical therapy for now but is also interested in talking to a interior decorator painting about options for treatment of her symptoms especially if she does not get any relief with PT, she is traveling at the end of the month and wanted to do something for pain for now, she has had a prednisone taper before so we will try this again Obesity 643179549 E66.9 [id number] Patient continues to have difficulty with losing [...] as needed to help with further weight loss....to day, the patient has started on her Zepbound prescripti on. She's had 2 doses so far and has only had some mild nausea. She will let us know if she is getting to the end of this month of medication and then let us know if she wants to go up on the dose or stay at 2.5 mg Health Concerns Section Related Observation LastModified by Organization Detai ls LastModified Time None Recorded Concern Status LastModified by Organization Details LastModified Time None Recorded Payers Encounter Date Sequence Insurance Name Policy Number Policy Pantoja Covered Member ID Pantoja Member ID Guarantor Name 12/28/2024 1 [employer] (MEDICARE REPLACEMENT/ ADVANTAGE - HMO) Stephy Fuentes [id number] Stephy Fuentes Notes Date Note Type Note Provider Name and Address Organization Details Recorded Time 12/28/2024 text/html Here with her to review recent imaging of her neck/back. She continues to have mostly left-sided symptoms both upper and lower extremity. Pain in the neck and posterior shoulder. Left arm and leg can feel somewhat weak at times. She does have muscle tightness in the neck and back as well. Also, the patient has started on her Zepbound prescription. She's had 2 doses so far and has only had some mild nausea. She will let us know if she is getting to the end of this month of medication and then let us know if she wants to go up on the dose or stay at 2.5 mg Ronaldo Gibbs MD [address] [place] [address], [phone], [facility] 12/29/2024 10:38:13 OBGyn Episode No OBEpisode recorded.
--- OUTSIDE RECORDS SUMMARY | 2025-03-12 14:35 | XMS_ITS | Encounter Summary ---
Author Organization [facility] Address [address] [place] [address] Care Team Providers Care Hospital Pharmacy Director Name Role Phone Pcp, None Selected Primary Care Provider Unavail able Encounter Details Date Type Department Care Team (Late st Contact Info) Description 03/20/[address] [facility] [address] [facility], [address] [place] [address] Trent Robledo MD [address] [place] [address] Social History Tobacco Use Types [...] on filedocumented in this encounter Care Teams Hospital Pharmacy Director Relationship Specialty Start Date End Date Pcp, None Selected PCP - General 08/06/24 documented as of this encounter
--- OUTSIDE RECORDS SUMMARY | 2025-03-12 14:35 | XMS_ITS | Clinical Summary ---
Author Organization [facility] Address [address] [place] [address] Care Team Providers Care News Assignment Editor Name Role Phone Pcp, None Selected Primary Care Provider Unavail able Allergies Active Allergy Reactions Criticality Noted Date Comments Pollen Extracts 07/11/2021 Medications triamcinolone (KENALOG) 0.1 % cream 05/26/2021 Active traZODone (DESYREL) 50 mg tablet 2 tablets (100 mg total) 06/20/2021 Active omeprazole (PriLOSEC) 40 mg capsule 06/19/2021 Active SUMAtriptan (IMITREX) 100 mg tablet Take 1 tablet (100 mg total) by mouth once as needed for migraine Active ESTRIOL, BULK, MISC Active Active Problems Problem Noted Date Diagnosed Date TOR (obstructive sleep apnea) 10/11/2023 Assessment & Plan (10/11/2023 12:51 PM PDT): Carson came in today for a follow-up on her TOR, as well as an initial compliance visit on the use of her CPAP machine. She reports that she is barely able to use her CPAP machine because of the discomfort from the mask interface. She states that she has tried the fullface, nasal pillow, as well as nasal masks, and she would often get irritation around her nose. She states that she is barely able to use the machine for longer than 4 hours as it would cause her discomfort instead of allowing her to sleep. This is reflected on the download we obtained. She verbalized that she recognizes the importance of treating her TOR, and would like to explore alternatives for therapy. I discussed with her 3 options to move forward. First, I discussed why PAP therapy is the gold standard, and offered her a titration study which perhaps might determine settings that would be comfortable for her. Second, I discussed about the mandibular advancement device (MAD) which she is quite interested in. She states that she already uses a mouthguard. Lastly, I discussed about the inspire device. She may not qualify for this given her last sleep study, but we could always reevaluate. After our discussion, she verbalized that she would like to move forward with a consultation with sleep dentistry for mandibular advancement device. I have placed this consult request, and she is scheduled to return to our clinic 6 months from now, in anticipation of maximal adjustment of the MAD. Sleep disturbance 03/27/2023 Resolved Problems Problem Noted Date Diagnosed Date Resolved Date Sleep-related breathing disorder 03/27/2023 10/11/2023 Assessment & Plan (05/03/2023 12:42 PM PST): Carson came in with concerns for possible TOR. She reports snoring at night which may sometimes wake her up. She denies any parasomnias or symptoms suggestive of RBD/RLS/cataplexy. She reports waking up tired in the morning, and has some sleepiness and fatigue with memory issues in the daytime. On physical exam today she does appear to have a tight oral airway. All of the above are highly suggestive of TOR. We talked about the normal physiology of sleep, pathophysiology of TOR, complications, diagnostic methods, and possible treatment options. I have ordered for a home sleep test. I would like to see her back to discuss results. Medical decision making: I discussed with her how an in lab sleep study would be much more accurate and comprehensive in comparison to a home sleep test. I ordered for a home sleep test because that is her preference, and it is also usually what her insurance would authorize as a first step. I discussed that we can always revisit the clinical indications for an in lab sleep study after we have reviewed the results of the home sleep test. She also expressed today that she would prefer to move forward with an alternative treatment to PAP, but would be open to PAP therapy if this is what is recommended in her case. She states that her sleeps with a CPAP machine on and he has reassured her that she will get used to it. However, she states that she does not know if she can ever get used to the idea of having a mask on her face. I discussed with her that we can review the different options for treatment depending on the severity of her TOR, as well as other findings such as oxygen saturations on her home sleep test. Addendum 05/03/2023: Patient reports severe insomnia. Insomnia severity index of 24/28 (severe), which would be a contraindication to a portable study (see telephone note 04/29/2023). An in lab sleep study has since been ordered. Encounters Date Type Department Care Team Description 02/03/2025 11:15 AM PDT - 02/03/2025 11:59 PM PDT Hospital Encounter [facility] [place] [address] [place] [address] Postmenopausal osteoporosis; Age-related osteoporosis without current pathological fracture Discharge Disposition: Home/Self Care from Last 3 Months Family History Medical History Relation Comments Stroke Father Relation Status Comments Father Social History Tobacco Use Types Packs/Day Years Used Date Smoking Tobacco: Former Cigarettes 0.3 10 1 978 - 1987 Smokeless Tobacco: Never Tobacco Cessation:Counseling Given: Not Answered Alcohol Use Standard Drinks/Week Comments Not Currently 0 (1 standard drink = 0.6 oz pur e alcohol) Comments Unknown Sex and Gender Information Value Date Recorded Sex Assigned at Not on file Legal Sex Female 4:01 PM PST Gender Identity Not on file Sexual Orientation Not on file Last Filed Vital Signs Vital Sign Reading Time Taken Comments Blood Pressure 100/64 10/11/2023 11:15 AM PDT Pulse 66 10/11/2023 11:15 AM PDT Temperature 36.4 C (97.5 F) 07/11/2021 1:36 PM PDT Respiratory Rate - - Oxygen Saturation 99% 10/11/2023 11:15 AM PDT Inhaled Oxygen Concentration - - Weight 63.5 kg (140 lb) 07/21/2024 11:24 AM PDT Height 162.6 cm (5' 4) 07/21/2024 11:24 AM PDT Body Mass Index 24.03 07/21/2024 11:24 AM PDT Plan of Treatment Health Maintenance Due Date Last Done Comments Medicare Annual Wellness (AWV) 1960 Depression Screening (PHQ-2) 1971 Cervical Cancer Screening Combined Topic 08/23/1989 Cervical Cancer-Pap screening 08/23/1989 HPV/Cotest 08/23/1989 Colorectal Cancer Screening (Colonoscopy) 08/23/2004 Colorectal Cancer Screening (FOBT) 08/23/2004 Colorectal Cancer Screening (Fecal DNA) 08/23/2004 Colorectal Cancer Screening Combined 08/23/2004 HM Pneumococcal Adult 50+ (1 of 1 - PCV) 08/23/2009 Breast Cancer Screening 01/11/2022 01/12/2020 DTaP,Tdap,and Td Vaccines (2 - Td or Tdap) 09/22/2023 09/21/2013 Fall Risk Screening 08/23/2024 COVID-19 Vaccine ( season) 2024 04/06/2021, 07/05/2020, 06/07/2020 Influenza Vaccine (#1) 2025 2, 12/30/2020, 01/08/2020, Additional history exists Bone Density Scan 02/04/2028 02/03/2025 RSV Patients Over 60 years OR qualifying ( Patients) (1 - 1-dose 75+ series) 08/23/2034 Zoster Vaccines Completed 08/30/2020, 04/05/2020 HPV Vaccines Aged Out No longer eligi ble based on patient's age to complete this topic Hepatitis A Vaccines Aged Out No long er eligible based on patient's age to complete this topic Hepatitis B Vaccines Aged Out No long er eligible based on patient's age to complete this topic IPV Vaccines Aged Out No longer eligi ble based on patient's age to complete this topic MMR Vaccines Aged Out No longer eligi ble based on patient's age to complete this topic Procedures Procedure Name Priority Date/Time Associated Diagnosis Comments DEXA COMPLETE Routine 02/03/2025 11:38 AM PDT Postmenopausal osteoporosis Age-related osteoporosis without current pathological fracture from Last 3 Months Results * DEXA COMPLETE (02/03/2025 11:38 AM PDT) Anatomical Region Laterality Modality N/A Radiographic Katie ging 02/03/2025 2:20 PM PDT Narrative 02/03/2025 8:47 [place]. [address] PATIENT NAME: CARSON FUENTES : 1960 GENDER: F EXAM DATE: 02/03/2025 11:46 ORDERED FROM: [facility] ORDERING PHYSICIAN: DAVID MIMS CC: -- - - - CONTRAST: READING STATION ID: [id number] mGy: PROCEDURE: DEXA COMPLETE INDICATIONS: Age-related osteoporosis without current pathological fracture COMPARISON: None. FINDINGS: Lumbar Spine (L1-L4): Bone mineral density is 0.959 g/cm2, T score -0.8. Left Femoral Neck: Bone mineral density 0.675 by g/cm2, T score -1.6. Left Hip: Bone mineral density 0.781 g/cm2, T score -1.3. FRAX score not reported due to prior hip or vertebral fracture. (T score greater or equal to -1.0 to: NORMAL) (T score from -1.1 to -2.4: OSTEOPENIA) (T score less than or equal to -2.5: OSTEOPOROSIS) IMPRESSION: By WHO criteria, patient has osteopenia. Follow-up guidelines as follows: Osteoporosis: Consider a repeat DEXA and Vertebral Fracture Assessment (VFA) exam in 2 years or sooner if medically necessary, to reassess this patient's status. Osteopenia: Consider a repeat DEXA in 2-3 years to reassess this patient's status, or if there is a new clinical indication. Normal: Consider a repeat DEXA in 5 years or sooner, or if there is a new clinical indication. All treatment decisions require clinical judgment and consideration of individual patient factors, including patient preferences, comorbidities, previous drug use, risk factors not captured in the FRAX model (e.g., frailty, falls, vitamin D deficiency, increased bone turnover, interval significant decline in bone density ) and possible under- or over-estimation of fracture risk by FRAX. In addition, the NOF Guide recommends that FDA-approved medical therapies be considered in postmenopausal women and men age >= 50 years with a: * Hip or vertebral (clinical or morphometric) fracture * T-score of <=-2.5 at the spine or hip * Ten-year fracture probability by FRAX of >= 3% for hip fracture or >=20% for major osteoporotic fracture. Reviewed by: Mariana Nolen RRA Interpreted: Blaze Herr MD on 02/03/2025 at 14:09 Transcribed by: KIM on 02/03/2025 at 14:20 Approved by: Blaze Herr M.D. on 02/03/2025 at 20:47 Procedure Note Blaze Herr P - 02/03/2025 [place]. [address] PATIENT NAME: CARSON FUENTES : 1960 GENDER: F EXAM DATE: 02/03/2025 11:46 ORDERED FROM: [facility] ORDERING PHYSICIAN: DAVID MIMS CC: -- - - - CONTRAST: READING STATION ID: [id number] mGy: PROCEDURE: DEXA COMPLETE INDICATIONS: Age-related osteoporosis without current pathologicalfracture COMPARISON: None. FINDINGS: Lumbar Spine (L1-L4): Bone mineral density is 0.959 g/cm2, T score -0.8. Left Femoral Neck: Bone mineral density 0.675 by g/cm2, T score -1.6. Left Hip: Bone mineral density 0.781 g/cm2, T score -1.3. FRAX score not reported due to prior hip or vertebral fracture. (T score greater or equal to -1.0 to: NORMAL) (T score from -1.1 to -2.4: OSTEOPENIA) (T score less than or equal to -2.5: OSTEOPOROSIS) IMPRESSION: By WHO criteria, patient has osteopenia. Follow-up guidelines as follows: Osteoporosis: Consider a repeat DEXA and Vertebral Fracture Assessment(VFA) exam in 2 years or sooner if medically necessary, to reassess thispatient's status. Osteopenia: Consider a repeat DEXA in 2-3 years to reassess this patient'sstatus, or if there is a new clinical indication. Normal: Consider a repeat DEXA in 5 years or sooner, or if there is a newclinical indication. All treatment decisions require clinical judgment and consideration ofindividual patient factors, including patient preferences, comorbidities,previous drug use, risk factors not captured in the FRAX model (e.g.,frailty, falls, vitamin D deficiency, increased bone turnover, intervalsignificant decline in bone density ) and possible under- orover-estimation of fracture risk by FRAX. In addition, the NOF Guide recommends that FDA-approved medical therapiesbe considered in postmenopausal women and men age >= 50 years with a: * Hip or vertebral (clinical or morphometric) fracture * T-score of <=-2.5 at the spine or hip * Ten-year fracture probability by FRAX of >= 3% for hip fracture or >=20%for major osteoporotic fracture. Reviewed by: Mariana Nolen RRSerena Interpreted: Blaze Herr MD on02/03/2025 at 14:09 Transcribed by: KIM on 02/03/2025 at 14:20 Approved by: Blaze Herr M.D. on 02/03/2025 at 20:47 David [facility]ARRISON [facility] DXA PROCEDURES Final Res ult from Last 3 Months Insurance [employer] Care Teams News Assignment Editor Relationship Specialty Start Date End Date Pcp, None Selected PCP - General 08/06/24
--- OUTSIDE RECORDS SUMMARY | 2025-03-12 14:35 | XMS_ITS | Encounter Summary ---
Author Organization [facility] Address [address] [place] [address] Care Team Providers Care Bicycle Fitter Name Role Phone Pcp, None Selected Primary Care Provider Unavail able Encounter Details Date Type Department Care Team (Late st Contact Info) Description 07/18/2023 Abstract [facility] [address], [address] [place] [address] Vashti Alvarez ARNP [address] [place] [address] Social History Tobacco Use Types [...] documented as of this encounter Functional Status * Dix Sleepiness Scale Question Answer Date of Assessment Author Sitting and reading 2 07/18/2023 9:17 AM PD T La Kumar MA Watching TV 2 07/18/2023 9:17 AM PDT La Frias MA Sitting, inactive in a publi c place (e.g. a theatre or a meeting) 0 07/18/2023 9:17 AM PDT La Kumar MA As a passenger in a car for an hour without a break 0 07/18/2023 9:17 AM La Paredes M A Lying down to rest in the af ternoon when circumstances permit 1 07/18/2023 9:17 AM PDT Cindy Kumar MA Sitting and talking to someone 0 07/18/2023 9:17 AM La Paredes MA Sitting quietly after a lunc h without alcohol 1 07/18/2023 9:17 AM La Paredes M A In a car, while stopped for a few minutes in traffic 0 07/18/2023 9:17 AM La Paredes M A Total score 6 07/18/2023 9:17 AM PDT La Frias MA documented as of this encounter Plan of Treatment Not on file documented as of this encounter Visit Diagnoses Not on filedocumented in this encounter Care Teams Bicycle Fitter Relationship Specialty Start Date End Date Pcp, None Selected PCP - General 08/06/24 documented as of this encounter
--- OUTSIDE RECORDS SUMMARY | 2025-03-12 14:35 | XMS_ITS | Encounter Summary ---
Author Organization [facility] Address [employer] [address] Care Team Providers Care Shelf Drier Operator Name Role Phone Ronaldo Gibbs MD Primary Care Provider [phone] Encounter Details Date Type Department Care Team (Late st Contact Info) Description 02/09/2016 Lab Requisition [place], [place] [address] [place], [place] [phone] Ronaldo Gibbs MD [address] [place] [id number] Radiculopathy; Headache; Other fatigue; Cervicalgia Social History Tobacco Use Types Packs/Day Years [...] Procedure Name Priority Date/Time Associated Diagnosis Comments *CBC WITH DIFFERENTIAL, LAB GENERATED ORDER Routine 02/09/2016 8:45 AM PDT Radiculopathy Headache Other fatigue Cervicalgia THYROID FUNCTION PANEL Routine 6 8:45 AM PDT Radiculopathy Headache Other fatigue Cervicalgia SEDIMENTATION RATE, WESTERGREN Routine 02/09/2016 8:45 AM PDT Radiculopathy Headache Other fatigue Cervicalgia CBC WITH DIFFERENTIAL Routine 02/09/2016 8:45 AM PDT Radiculopathy Headache Other fatigue Cervicalgia VITAMIN D,25-HYDROXY Routine 02/09/2016 8:45 AM PDT Radiculopathy Headache Other fatigue Cervicalgia C-REACTIVE PROTEIN Routine 02/09/2016 8: 45 AM PDT Radiculopathy Headache Other fatigue Cervicalgia TRIIODOTHYRONINE, FREE (FT3) Routine 02/09/2016 8:45 AM PDT Radiculopathy Headache Other fatigue Cervicalgia VITAMIN B12 Routine 02/09/2016 8:45 AM PDT Radiculopathy Headache Other fatigue Cervicalgia LIPID PANEL Routine 02/09/2016 8:45 AM PDT Radiculopathy Headache Other fatigue Cervicalgia COMPREHENSIVE METABOLIC PANEL Routine 02/09/2016 8:45 AM PDT Radiculopathy Headache Other fatigue Cervicalgia documented in this encounter Results * Complete Blood Count with Automated Differential (02/09/2016 8:45 AM PDT) WBC 5.6 4.0 - 11.0 K/uL 02/09/2016 6:55 PM PDT [facility] RBC 3.90 3.75 - 5.07 M/uL 02/09/2016 6:55 PM PDT [facility] HGB 12.6 11.5 - 15.0 g/dL 02/09/2016 6:55 PM PDT [facility] HCT 38.6 34.8 - 45.0 % 02/09/2016 6:55 PM PDT [facility] MCV 99.0 80.0 - 100.0 fL 02/09/2016 6:55 PM PDT [facility] MCH 32.3 25.9 - 34.2 pg 02/09/2016 6:55 PM PDT [facility] MCHC 32.6 31.5 - 36.5 g/dL 02/09/2016 6:55 PM PDT [facility] RDW 12.2 11.5 - 14.2 % 02/09/2016 6:55 PM PDT [facility] Platelets 270 150 - 400 K/uL 02/09/2016 6:55 PM PDT [facility] MPV 9.5 8.5 - 12.4 fL 02/09/2016 6:55 PM PDT [facility] Neutrophils % 43.0 % 02/09/2016 6:55 PM PDT [facility] Immat Gran % 0.2 % 02/09/2016 6:55 PM PDT [facility] Lymphocytes % 48.1 % 02/09/2016 6:55 PM PDT [facility] Monocytes % 6.4 % 02/09/2016 6:55 PM PDT [facility] Eosinophils % 1.4 % 02/09/2016 6:55 PM PDT [facility] Basophils % 0.9 % 02/09/2016 6:55 PM PDT [facility] Neutrophils # 2.4 1.5 - 8.0 K/uL 02/09/2016 6:55 PM PDT [facility] Immat Gran # 0.0 0.0 - 0.1 K/uL 02/09/2016 6:55 PM PDT [facility] Lymphocytes # 2.7 1.0 - 3.5 K/uL 02/09/2016 6:55 PM PDT [facility] Monocytes # 0.4 0.2 - 1.0 K/uL 02/09/2016 6:55 PM PDT [facility] Eosinophils # 0.1 0.0 - 0.5 K/uL 02/09/2016 6:55 PM PDT [facility] Basophils # 0.1 0.0 - 0.2 K/uL 02/09/2016 6:55 PM PDT [facility] Blood 02/09/2016 8:45 AM PDT 02/09/2016 6:12 PM PDT us Ronaldo Gibbs MD LAB BLOOD ORDERABLES Final Resu lt [facility] [address] [place] [address] * Vitamin D, 25-Hydroxy (02/09/2016 8:45 AM PDT) Vitamin D, 25-Hydroxy 35.2 See Comment ng/mL 02/10/2016 11:38 AM PDT [facility] Comment: Reference ranges: Deficiency: <20 ng/mL Insufficiency: 20-29 ng/mL Optimum Level: 30-80 ng/mL Possible Toxicity: > 150 ng/mL Blood 02/09/2016 8:45 AM PDT 02/09/2016 6:12 PM PDT Ronaldo Gibbs MD LAB BLOOD ORDERABLES Final Resu lt Performing Organization Address [facility]/ZIP Co de Phone Number [facility] [employer] [facility] [address] [place] [phone] * Thyroid Function Panel (02/09/2016 8:45 AM PDT) Free T4 0.92 0.61 - 1.27 ng/dL 02/09/2016 7:17 PM PDT [facility] TSH 3.880 0.400 - 4.600 uIU/mL 02/09/2016 7:17 PM PDT [facility] Blood 02/09/2016 8:45 AM PDT 02/09/2016 6:12 PM PDT Ronaldo Gibbs MD LAB BLOOD ORDERABLES Final Resu lt Performing Organization Address [facility] Co de Phone Number [facility] [address] [place] [phone] * Triiodothyronine, Free (FT3) (02/09/2016 8:45 AM PDT) Triiodothyronine (T3), Free 2.85 2.50 - 3.90 pg/mL 02/09/2016 9:49 PM PDT [facility] Blood 02/09/2016 8:45 AM PDT 02/09/2016 6:12 PM PDT Ronaldo Gibbs MD LAB BLOOD ORDERABLES Final Resu lt Performing Organization Address City/[facility] Co de Phone Number [facility] [address] [place] [phone] * (ABNORMAL) Lipid Panel (02/09/2016 8:45 AM PDT) Cholesterol 242(H) <200 mg/dL 02/09/2016 7:17 PM PDT [facility] Comment: Desireable: <200 Borderline: 200-239 High: > 239 Triglycerides 52 <150 mg/dL 02/09/2016 7:17 PM PDT [facility] Comment: Normal: <150 Borderline: 150-199 High: 200-499 Very High: > or = 500 HDL Cholesterol 85 >=40 mg/dL 02/09/2016 7:17 PM PDT [facility] Comment: Low: <40 (High risk) Normal: 40-59 High: > or = 60 (Low risk) LDL, Calculated (Friedewald) 147(H) <100 mg/dL 02/09/2016 7:17 PM PDT [facility] Comment: Optimal: <100 Near Optimal: 100-129 Borderline: 130-159 High: 160-189 Very high: >189 Non-HDL Cholesterol 157(H) <130 mg/dL 02/09/2016 7:17 PM PDT [facility] Comment: Desirable: <130 Borderline: 130-159 High: 160-189 Very High: > or = 190 Blood 02/09/2016 8:45 AM PDT 02/09/2016 6:12 PM PDT Ronaldo Gibbs MD LAB BLOOD ORDERABLES Final Resu lt Performing Organization Address City/[facility] Co de Phone Number [address] [address] * Sedimentation Rate, Westergren (02/09/2016 8:45 AM PDT) Sedimentation Rate, Westergren 15 0 - 25 mm/hour 02/09/2016 7:35 PM PDT [facility] Blood 02/09/2016 8:45 AM PDT 02/09/2016 6:12 PM PDT Ronaldo Gibbs MD LAB BLOOD ORDERABLES Final Resu lt Performing Organization Address [facility] Co de Phone Number [address] [phone] * C-Reactive Protein (02/09/2016 8:45 AM PDT) C-Reactive Protein 0.2 <1.0 mg/dL 02/09/2016 7:17 PM [facility] Blood 02/09/2016 8:45 AM PDT 02/09/2016 6:12 PM PDT [facility] - 02/09/2016 7:17 PM PDT Note: CRP is used to indicate the presence of an inflammatory process; hsCRP (high sensitivity CRP) is used for CVD risk assessment. us Ronaldo Gibbs MD LAB BLOOD ORDERABLES Final Resu lt [facility] [address] [place] [address] * (ABNORMAL) Comprehensive Metabolic Panel (02/09/2016 8:45 AM PDT) Sodium 136 135 - 145 mmol/L 02/09/2016 7:17 PM [facility] Potassium 4.3 3.5 - 5.2 mmol/L 02/09/2016 7:17 PM [facility] Chloride 101 95 - 109 mmol/L 02/09/2016 7:17 PM [facility] CO2 28 22 - 32 mmol/L 02/09/2016 7:17 PM [facility] Anion Gap 7 3 - 12 mmol/L 02/09/2016 7:17 PM [facility] Glucose 76 70 - 99 mg/dL 02/09/2016 7:17 PM [facility] BUN 12 6 - 20 mg/dL 02/09/2016 7:17 PM [facility] Creatinine 0.60 0.44 - 1.03 mg/dL 02/09/2016 7:17 PM [facility] GFR Non-Black (CKD-EPI) 102 >=60 mL/min/1. 73m2 02/09/2016 7:17 PM [facility] GFR Black (CKD-EPI) 118 >=60 mL/min/1. 73m2 02/09/2016 7:17 PM [facility] Protein, Total 6.1(L) 6.2 - 8.4 g/dL 02/09/2016 7:17 PM PDT [facility] Albumin 4.1 3.5 - 5.0 g/dL 02/09/2016 7:17 PM PDT [facility] Calcium 9.2 8.6 - 10.2 mg/dL 02/09/2016 7:17 PM PDT [facility] Bilirubin, Total 0.4 0.1 - 1.2 mg/dL 02/09/2016 7:17 PM PDT [facility] Alkaline Phosphatase 63 30 - 110 U/L 02/09/2016 7:17 PM PDT [facility] ALT 31 15 - 54 U/L 02/09/2016 7:17 PM PDT [facility] AST 29 15 - 41 U/L 02/09/2016 7:17 PM PDT [facility] Calculated OSMO 270(L) 275 - 295 mOsm/kg 02/09/2016 7:17 PM PDT [facility] Blood 02/09/2016 8:45 AM PDT 02/09/2016 6:12 PM PDT us Ronaldo Gibbs MD LAB BLOOD ORDERABLES Final Resu lt Performing Organization Address City/[facility] Co de Phone Number [facility] [address] [place] [phone] * Vitamin B12 (02/09/2016 8:45 AM PDT) Vitamin B12 535 See comment. pg/mL 02/09/2016 9:49 PM PDT [facility] Comment: Normal: 180-914 pg/mL Indeterminate: 145-179 pg/mL Deficient: <145 pg/mL Blood 02/09/2016 8:45 AM PDT 02/09/2016 6:12 PM PDT Ronaldo Gibbs MD LAB BLOOD ORDERABLES Final Resu lt Performing Organization Address City/[facility]/ZIP Co de Phone Number [facility] [address] [place] [phone] documented in this encounter Visit Diagnoses Diagnosis Radiculopathy Unspecified neuralgia, neuritis, and radiculitis Headache Other fatigue Cervicalgia documented in this encounter Care Teams Shelf Drier Operator Relationship Specialty Start Date End Date Ronaldo Gibbs MD [address] [place] [address] PCP - General Family Medicine 07/18/21 documented as of this encounter
--- OUTSIDE RECORDS SUMMARY | 2025-03-12 14:36 | XMS_ITS | Data Portability ---
Author Organization [facility], HOUSE CALL Address [address] [place] [address] Assessment Encounter Date Assessment Date Assessment LastModified [...] Appointments None recorded. Lab fecal occult blood, immunoassa y, stool 2024 025 [place] [facility], [address] [facility], [place], [address], 13:17:48 Referral physical therapist referral 2024 025 [facility], [address], [place], [address], 13:57:11 pain management referral 2024 025 JAVED Bowen DO, [address] [place], [address], 10:53:12 physical therapist referral 2024 025 [facility], [address], [place], [address], 11:06:51 pain management referral 2024 025 [facility] Rufino Bowen DO, [address], [place], [address], 10:59:52 Procedures None recorded. Surgeries None recorded. Imaging DEXA, axial skeleton + vertebral fracture assessment 2024 [facility], [address] [place], [address], 23:52:20 electrocar diogram 2024 025 chang Main Office, [address] [place], [address], 01:59:15 MRI, lumbar spine, w/o contrast 2024 025 [facility], [address] [place] [address], [address], 5 19:31:13 MRI, cervical spine, w/o contrast 2024 025 [facility], [address] [place] [address], [address], 19:15:21 Medication Orders prednisone 10 mg tablet 2024 025 [place] [facility], [address] [place] [address], [address], 18:07:45 Zepbound 2.5 mg/0.5 mL subcutaneo us solution 2024 025 [place] [facility], [address], [place], [place], [phone], 13:27:32 methocarba mol 500 mg tablet 2024 025 [facility], [address] [place] [address], [address], 16:28:03 omeprazole 40 mg capsule,de layed release 2023 025 [facility], [address] [place] [address], [address], 12:55:25 codeine 10 mg-guaifen esin 100 mg/5 mL oral liquid 2023 024 chang [facility], [address] [place] [address], [address], 16:05:19 Patient TargetsNo targets recorded. Patient Instructions Encounter Date Encounter Id Patient Instructions Last Modified By Organization Details Last Modified Time 12/15/2024 [id number] advance care planning: care instructions chang Not available 12/15/2024 13:17:36 Discussed and explained advance directives such as standard forms to the patient. Face to face discussion lasted for a duration of __1_ minutes. chang Not available 12/15/2024 13:26:48 Reason for Referral Physical Therapist Referral for Left cervical root neuropathy Referring Physician: [facility], Encounter Date: 12/28/2024 Physical Therapist Referral for Lumbosacral radiculopathy Referring Physician: [facility], Encounter Date: 12/28/2024 Pain Management Referral for Left cervical root neuropathy Referring Physician: [facility], Encounter Date: 12/28/2024 Pain Management Referral for Lumbosacral radiculopathy Referring Physician: [facility], Encounter Date: 12/28/2024 Results Created Date Observation Date Name Description Value Unit Range Abnormal Flag Note LastModifiedBy Organization Detail LastModifiedTime 01/20/2001/08/2024 MAMMO , scree yasmein, digit al, bilat eral No observ ation record ed. [place] [facility] [address], [place], [address], 01/26/2024 20:21:26 12/16/19 25 elect rocar diogr am No observ ation record ed. [email or web address] Main Office [address] [place], [address], 12/16/2024 01:59:12 12/16/19 elect rocar diogr am No observ ation record ed. [email or web address] Not Available 12/20 20:01:32 12/24/19 25 12/23/2024 MRI, cervi john spine , w/o contr ast No observ ation record ed. [address], [address], 12/28/2024 17:30:41 12/24/19 25 12/23/2024 MRI, lumba r spine , w/o contr ast No observ ation record ed. [address] [facility] [address] [place] [address], [address], 12/28/2024 17:30:54 01/15/20 25 01/14/2025 audio gram + tympa nogra m No observ ation record ed. [facility] [address] [place], [address], 02/16/2025 15:02:38 01/20/20 25 01/19/2025 MAMMO , scree yasemin, digit al, bilat eral No observ ation record ed. [place] [facility] [address], [place], [address], 02/16/2025 15:02:37 02/04/20 25 02/03/2025 DEXA, axial skele ton + verte bral fract ure asses sment No observ ation record ed. [facility] [address] [place], [address], 02/16/2025 15:02:37 Result Notes None recorded. Problems Name Problem SNOMED Code Status Onset Date Resolution Date Notes Provider Name and Address Organization Details Recorded Time Migraine 40854496 Active Ronaldo Gibbs MD [address] [place] [address], [address] , [facility] 19:16:17 Insomnia 253511471 Active Ronaldo Gibbs MD [address] [place] [address], [address] , [facility] 19:16:37 Problem Notes None recorded. Procedures Surgical History Date Name Laterality Status Provider Name and Address Organization Details Recorded Time myringoplasty completed Ronaldo Gibbs MD [address] [place] [address], [address], [facility] 04/04/2021 19:27:20 Back Surgery completed Ronaldo Gibbs MD [address] [place] [address], [address], [facility] 04/04/2021 19:27:30 Hysterectomy completed Ronaldo Gibbs MD [address] [place] [address], [address], [facility] 04/04/2021 19:27:50 Appendectomy completed Ronaldo Gibbs MD [address] [place] [address], [address], [facility] 04/04/2021 19:27:56 reduction plasty of bilateral breasts completed Ronaldo Gibbs MD [address] [place] [address], [address], [facility] 04/04/2021 19:28:07 Imaging Results None [...] d Address Organization Details Last Updated DateTime 10/31/2023 165.1 cm Ronaldo Gibbs MD [address] [place] [address], [address] 10/31/2023 17:34:06 Date Recorded Body height Provider Name an d Address Organization Details Last Updated DateTime 11/30/2024 165.1 cm Ronaldo Gibbs MD [address] [place] [address], [address] 11/30/2024 16:05:03 Date Recorded Body height Body mass index (BMI) Body weight Systolic And Diastolic Provider Name and Address Organization Details Last Updated DateTime 12/15/2024 165.1 cm 25.5 kg/m2 97665.63 g 102/68 mm[Hg] Ronaldo Gibbs MD [address] [place] [address], [address] 12/15/2024 13:35:16 Date Recorded Body height Provider Name an d Address Organization Details Last Updated DateTime 12/28/2024 165.1 cm Ronaldo Gibbs MD [address] [place] [address], [address] 12/28/2024 17:26:40 Date Recorded Body height Body mass index (BMI) Body weight Oxygen saturation Heart rate Provider Name and Address Organization Details Last Updated DateTime 04/20/2024 165.1 cm 23.6 kg/m2 25056.12 g 97 % 75 /min Ronaldo Gibbs MD [address] [place], [address] [facility] 18:22:34 Social History Question Answer Notes LastModified by [employer] Details LastModified Time Tobacco Smoking Status Former Smoker Ronaldo Gibbs MD [address] [place], [address], [facility] 04/04/2021 19:26:09 Do You Have An Advance Directive? No [email or web address] Information not available 10/31/2023 What Is The Highest Grade Or Level Of School You Have Completed Or The Highest Degree You Have Received? [id number] [email or web address] Information not available 04/04/2021 When Did You Quit Smoking? 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 No [email or web address] Information not available 10/31/2023 What Was The Date Of Your Most Recent Tobacco Screening? 11/30/2024 [email or web address] Information not available 11/30/2024 How Many Children Do You Have? 3 [email or web address] Information not available 04/04/2021 What Is Your Relationship Status? [email or web address] Information not available 04/04/2021 Has Tobacco Cessation Counseling Been Provided? No [email or web address] Information not available 06/15/2022 Sex: Unknown Functional Status Question Answer Note LastModified by [employer] ion Details LastModified Time Do you use any illicit or recreational drugs? No [email or web address] Information not available 04/04/2021 Do you or have you ever used any other forms of tobacco or nicotine? No [email or web address] Information not available 04/04/2021 What is your level of alcohol consumption? 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 [email or web address] Information not available 04/04/2021 Mental Status None [...] 50 mcg/0.25mL dose 1 completed Not Available [facility] 12/15/2024 12:23:24 COVID-19, mRNA, LNP-S, PF, 100 mcg/0.5mL dose or 50 mcg/0.25mL dose 1 completed Not Available [facility] 12/15/2024 12:23:24 COVID-19, mRNA, LNP-S, PF, 100 mcg/0.5mL dose or 50 mcg/0.25mL dose 1 completed Not Available [facility] 12/15/2024 12:23:24 Influenza, split virus, trivalent, PF 1 completed Not Available [facility] 12/15/2024 12:23:24 Influenza, split virus, trivalent, PF 4 completed Not Available [facility] 12/15/2024 12:23:24 Influenza, split virus, quadrivalent, PF 2 completed Not Available [facility] 12/15/2024 12:23:24 Influenza, MDCK, quadrivalent, PF 1 completed Not Available [facility] 12/15/2024 12:23:24 Tdap 4 completed Not Available [facility] 12/15/2024 12:23:24 Influenza, split virus, quadrivalent, preservative 8 completed Not Available [facility] 12/15/2024 12:23:24 Influenza, split virus, quadrivalent, PF 9 completed Not Available [facility] 12/15/2024 12:23:24 Influenza, split virus, quadrivalent, PF 0 completed Not Available [facility] 12/15/2024 12:23:24 influenza, seasonal, intradermal, preservative free 2 completed Not Available [facility] 12/15/2024 12:23:24 influenza, seasonal, intradermal, preservative free 3 completed Not Available [facility] 12/15/2024 12:23:24 zoster recombinant 0 completed Not Available [facility] 12/15/2024 12:23:24 zoster recombinant 1 completed Not Available [facility] 12/15/2024 12:23:24 Past Encounters Encounter ID Performer Location Encounter Start Date Encounter Closed Date Diagnosis/Indication Diagnosis SNOMED-CT Code Diagnosis ICD10 Code Diagnosis IMO Codes Diagnosis Note [id number] Ronaldo Gibbs MD Main Office [address] [place] [address] 04/04/2021 18:31:55 04/05/2021 01:47:31 Mass of foot 969970982 R22.43 plantar surface of both feet, it appears to be a Dupuytren' s like lesion but the patient has no contractur es noted today, will refer to medicaid billing specialist for evaluation Insomnia 089835046 G47.0 0 chronic issue, previously did well on trazodone but tried weaning off, not getting good relief with over-the-c ounter solutions, will restart the trazodone Perimenopa usal atrophic vaginitis 698137810 N95.2 patient will continue with her compounded vaginal estrogen, she is aware of slight risk associated with hormones specifical ly with risk of cancer [id number] Ronaldo Gibbs MD Main Office [address] [place] [address] 04/13/2021 19:01:23 04/28/2021 01:24:04 Otitis externa of left ear 4773186943 014752 H60.92 patient will start on prescripti on drops, initially prescribed Ciprodex but apparently this was not covered on her insurance so we will try Cortispori n, she will let us know if it is not improving Perforatio n of left tympanic membrane 6963582457 801611 H72.92 remote history of perforatio n with reported repair with patient appears to have a clear perforatio n on exam today, if patient has continued issues or notes worsening hearing we can refer to ENT Insomnia 746639461 G47.0 0 chronic issue, can try higher dose(2 tabs) at bedtime, reviewed potential side effects [id number] Ronaldo Gibbs MD Main Office [address] [place] [address] 06/19/2021 13:29:10 06/19/2021 14:29:35 Gastroesophageal reflux disease 370762189 K21.00 still symptomati c despite OTC omeprazole , will try RX version, discussed lifestyle changes including elevating head of bed, if not getting better may need to see GI Palpitations 74508289 R0 0.2 occasional issue for patient, stronger episode recently, unclear if related to her GERD, check labs and EKG today, if no obvious cause may need CARD referral and a transport manager. In the meantime she will try to get her Apple watch to work so she could use it the next time this occurs Incomplete right bundle branch block 598769999 I45.19 noted on EKG today, no priors, will refer to CARD for further evaluation [id number] Ronaldo Gibbs MD Main Office [address] [place] [address] 12/07/2021 16:27:45 12/07/2021 18:27:49 Snoring 74035654 R06.83 an ongoing issue for the patient was likely has sleep apnea by prescripti on, we'll refer her for a testing, prefers to do testing at home, she is interested in the inspire device and CPAP Low back p ain co-occurrent with neuralgia of left sciatic nerve 1622022591 0459850 M54.42 in the patient's worsening symptoms recently, she had prior surgery, she is going to try a home traction device, if she is not getting better, we will consider getting an MRI if she has not improved [id number] Ronaldo Gibbs MD Main Office [address] [place] [address] 12/15/2021 17:26:47 12/15/2021 17:56:50 Pneumonia 212822875 J18.9 right side, start on z-pack as directed, expect improvemen t over next few days, hydrate, rest, call if not improving [id number] Ronaldo Gibbs MD Main Office [address] [place] [address] 06/15/2022 16:22:46 06/15/2022 20:07:24 Active or passive immunization 235384989 Z23 from available records it appears she is up-to-date Adult heal th examination 381591180 Z00.01 review general preventati ve issues, including healthy diet and exercise, generally up-to-date on preventati ve issues except as below Low back pain 220776470 M54.50 ongoing issue with this remote history of severe pain and procedure, hoping to avoid any procedures at this point, we will go ahead and get plain films to be sure there is not been any significan t changes and she will try a muscle relaxer for now, also get back to exercises and consider formal physical therapy Allergic rhinitis 154695 04 J30.9 ongoing issue for the patient with marginal improvemen t with nasal steroids or antihistam edgardo, check allergy panels Fatigue 20322742 R53.83 ongoing issue, may simply be related to her currently untreated sleep apnea were a side effect of the medication she takes for sleep but we will check labs to be sure there is not another cause of his obvious Screening for malignant neoplasm of colon 092514892 Z12.11 did stool test last year, had hard time doing prep for colonoscop y in the past, she will think about which one she wants to do this year Hyperlipid emia screening 254603705 Z13.220 due for screening Tendinitis of left rotator cuff 4872688412 9032774 M67.814 ongoing problem, reviewed diagnosis, recommend formal physical therapy the patient would like try to much size is first, if she's not making headway then Obstructiv e sleep apnea syndrome 99590345 G47.33 apparently diagnosed in the past year or 2, mild, has not been treated yet, patient will pursue this with the sleep clinic [id number] Ronaldo Gibbs MD Main Office [address] [place] [address] 06/26/2022 12:33:15 06/26/2022 13:23:02 Allergic rhinitis 82454622 J30.9 Hyperlipid emia screening 443052853 Z13.220 Fatigue 53773871 R53.83 [id number] Ronaldo Gibbs MD Main Office [address] [place] [address] 01/17/2023 17:34:02 01/18/2023 09:30:23 Vaginitis 01051406 N76.0 patient still having vaginal itching and discomfort with no significan t odor and no significan t discharge, patient already treated for atrophic vaginitis, resend urine sample showed only mixed pacheco and urinalysis from yesterday was benign, we talked about possible sources and ultimately decided to try treating for a fungal infection, take Diflucan as directed, if symptoms are not improving by next week then we will have the patient complete a vaginal swab and another urinalysis [id number] Ronaldo Gibbs MD Main Office [address] [place] [address] 04/18/2023 16:02:20 04/18/2023 16:38:24 Acute sinusitis 81525254 J01.90 Ongoing symptoms for 2 weeks, will start on Zithromax as directed, rest and fluids, she will let us know if things are not improving Cough 26050917 R05.9 Ongoing, and postnasal drainage, refilled her cough syrup Overweight 911221149 E66 .3 Patient struggling to get her weights to drop, feeling the added weight and making it harder to get out and exercise, talked about current options, wegonilday et al too expensive, we will try starting with just phentermin e, reviewed potential side effects, considered Qysmia but it is also expensive [id number] Ronlado Gibbs MD Main Office [address] [place] [address] 09/23/2023 19:29:25 09/24/2023 02:30:33 Neck pain 37636175 M54.2 ongoing issue for the patient, no recent injuries, suspect she has some arthritic changes like she does in her lower spine, check x-rays for now, conservati ve care including exercises and occasional NSAIDs Pain of bi lateral hip joints 4946139434 1147339 M25.551 M25.552 ongoing issue, suspect this is radiating pain from her back but we will check x-rays of the hips to be sure Low back pain 515264799 M54.50 ongoing issue with this remote history of [...] confirmed degenerati ve changes without significan t deformitiuriah s, will work on home exercises Overweight 791193154 E66 .3 Patient struggling to get her weights to drop, feeling the added weight and making it harder to get out and exercise, talked about current options, bennie et al too expensive, we will try starting with just phentermin e, reviewed potential side effects, considered Qysmia but it is also expensive. ......toroberto y, patient feels she is tolerating phentermin e, continue current dosing Sleep apnea 60485003 G47 .30 confirmed with sleep study earlier this year, patient has had difficulty tolerating CPAP device, specifical ly the mask, she'll be seeing the sleep medicine specialist in a few weeks to discuss Ronaldo Gibbs MD Main Office [address] [place] [address] 04/20/2024 17:25:06 04/21/2024 03:18:47 Iron deficiency anemia 04094839 D50.9 57444843 noted on recent blood work with picker and packer , mild anemia, appear to be normocytic raising concern for blood loss as a source Cough 57501663 R05.9 Ongoing, and postnasal drainage, refilled her cough syrup Acute gastritis 47408792 K29.00 60978500 patient having nausea and stomach discomfort with iron deficiency as noted above, suspect gastritis, patient has been under a huge amount of stress in the past year or so, we will start a trial of omeprazole , anticipate improvemen t of her abdominal symptoms over the next week, if no improvemen t at all, she will let us know, if there is improvemen t would anticipate being a medication for approximat daniela 6 weeks and then seeing how she does without it, after that she can work on her iron intake again [id number] Ronaldo Gibbs MD Main Office [address] [place] [address] 11/30/2024 15:56:12 11/30/2024 16:39:45 Lumbosacral radiculopathy 0140778 M54.17 [address]7730 ongoing issue with this remote history of [...] at night Left cervi john root neuropathy 7245107863 7347879 M54.12 64623105 Patient with known history of lumbar degenerati ve disc disease and prior back surgery with increasing neck pain and left hand radicular symptoms as well as left leg radicular symptoms, we'll go ahead and get neck imaging to look for possible causes of her current symptoms [id number] Ronaldo Gibbs MD Main Office [address] [place] [address] 12/15/2024 12:22:40 12/15/2024 20:51:01 Screening for cardiovascular system disease 358038965 Z13.6 checked screening EKG, shows sinus rhythm with incomplete right bundle branch block, it appears stable compared to past EKG Screening for malignant neoplasm of colon 165872850 Z12.11 did stool test last year, had hard time doing prep for colonoscop y in the past, she will think about which one she wants to do this year...Tod ay, patient prefers to simply do stool testing due to past difficulti es with colonoscop y Screening mammography 24 811700 Z12.31 scheduled with [facility] van next month Well adult 238493783 Z00 .00 [id number] review general preventati ve issues, including healthy diet and exercise, generally up-to-date on preventati ve issues except as below Postmenopa usal osteoporosis 495589621 M81.0 2201 Due for screening test Obesity 813991961 E66.9 4703106077 Patient continues to have difficulty with losing [...] needed to help with further weight loss [id number] Ronaldo Gibbs MD Main Office [address] [place] [address] 12/28/2024 17:21:12 12/28/2024 20:41:54 Lumbosacral radiculopathy 7577438 M54.17 61167 ongoing issue with this remote history of [...] for now but also for consult with statuary painter Left cervi john root neuropathy 4948886895 9784554 M54.12 45468496 Patient with known history of lumbar degenerati [...] is also interested in talking to a statuary painter about options for treatment of her symptoms especially if she does not get any relief with PT, she is traveling at the end of the month and wanted to do something for pain for now, she has had a prednisone taper before so we will try this again Obesity 162733818 E66.9 [id number] Patient continues to have difficulty with losing [...] by Organization Details LastModified Time None Recorded Advance Directives Directive N: Payers Insurance Date Sequence Insurance Name Policy Number Policy Pantoja Covered Member ID Pantoja Member ID Guarantor Name 11/30/2024 1 [facility] [id number] Stephy Fuentes [id number] Stephy Fuentes 11/30/2024 1 [place]: [employer] [facility] Stephy Fuentes [id number] Stephy Fuentes 04/13/2024 2 [facility] - DOS ON OR AFTER 19 (EPO) [id number] Stephy Fuentes [id number] Stephy Fuentes 04/13/2024 1 [place] [employer]PPO[place] [id number] Stephy Fuentes [id number] Stephy Fuentes 12/26/2024 1 [employer] (MEDICARE REPLACEMENT/ ADVANTAGE - HMO) Stephy Fuentes [id number] Stephy Fuentes Notes Date Note Type Note Provider Name and Address Organization Details Recorded Time 4 text/htm l Here for review of images. Neck and back/hips better lately. Sees [facility] at times. Not Available Not Available Not Available 4 text/htm l Sick for 2 weeks. Still coughing. No fevers. Hard to sleep at night. Tried CPAP. Went thru different masks but no luck. Has now tried a bite block(ProSomnus). Will be following up with the medical dentist but seems to be tolerating it. Went to [facility] on 03/04. Had lots of labs. Loss of appetite. Thinking about eating can make her nauseated. Found to be iron deficient. 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 Ronaldo Gibbs MD [address] [place], [address], [facility] 04/21/2024 03:18:38 5 text/htm l 3 weeks ago woke up with her back out. Had to walk bent over. Stayed that way for 2 weeks. Had spasms, pain down left leg. Still feels tenuous. Muscle relaxer did help. Hard to stretch. Had prior back surgery. Patient also reports that she is having worsening neck pain with tingling down into her hand left hand. Her hand is feeling weak compared to the right side. No known injury. Ronaldo Gibbs MD [address] [place], [address], [facility] 12/01/2024 10:39:24 5 text/htm l Medicare Annual Wellness VisitReported by PatientSocial/Behavioral HistoryFor [...] for initial Medicare wellness visit. No c/o. Ronaldo Gibbs MD [address] [place] [address], [address], [facility] 12/16/2024 02:03:57 5 text/htm l Here with her to review recent imaging [...] stay at 2.5 mg Ronaldo Gibbs MD [address] [place] [address], [phone], [facility] 12/29/2024 10:38:13 OBGyn Episode No OBEpisode recorded.
--- OUTSIDE RECORDS SUMMARY | 2025-03-12 14:36 | XMS_ITS | Encounter Summary ---
Author Organization [facility] Address [facility] [address] Care Team Providers Care Group Social Worker Name Role Phone Ronaldo Gibbs MD Primary Care Provider [phone] Encounter Details Date Type Department Care Team (Late st Contact Info) Description 08/01/2021 Scanned Document SCANNED ONLY Scanned, Document Social History Tobacco Use Types Packs/Day Years Used Date Smoking Tobacco: Former Smokeless Tobacco: Never Alcohol Use Standard Drinks/Week Comments Yes 0 (1 standard drink = 0.6 oz pur e alcohol) Occasionally Comments Unknown Sex and Gender Information Value Date Recorded Sex Assigned at Not on file Legal Sex Female 6:34 PM PDT Gender Identity Not on file Sexual Orientation Not on file documented as of this encounter Plan of Treatment Not on file documented as of this encounter Visit Diagnoses Not on filedocumented in this encounter Care Teams Group Social Worker Relationship Specialty Start Date End Date Ronaldo Gibbs MD [address] [place], [place] [id number] PCP - General Family Medicine 07/18/21 documented as of this encounter
--- OUTSIDE RECORDS SUMMARY | 2025-03-12 14:36 | XMS_ITS | Clinical Summary ---
Author Organization [facility] Address [address] [place] [id number] Care Team Providers Care Operational Risk Consultant Name Role Phone Ronaldo Gibbs MD Primary Care Provider [phone] Allergies No known active allergies Medications estriol, bulk, 100 % Powder Estriol Ashley- twice weekly Active traZODone (DESYREL) 50 MG tablet Take 100 mg by mouth nightly 07/25/2021 Active SUMAtriptan (IMITREX) 100 MG tablet Take 100 mg by mouth as needed for Migraine 06/13/2020 Active cholecalciferol (VITAMIN D3) 1,000 unit (25 mcg) tablet Take 1,000 Units by mouth daily Active cyanocobalamin (VITAMIN B-12) 1000 MCG tablet Take 1,000 mcg by mouth daily Active TURMERIC ORAL Take by mouth daily Active ascorbic acid (VITAMIN C) 500 MG tablet Take 500 mg by mouth daily Active multivitamin with minerals (HAIR,SKIN AND NAILS ORAL) Take by mouth daily (Extra Stength) Active Active Problems Problem Noted Date Diagnosed Date Abnormal EKG 07/28/2021 Palpitations 07/28/2021 Family History Medical History Relation Comments Heart attack Father Heart attack Maternal Grandfather Relation Status Comments Father Maternal Grandfather Social History Tobacco Use Types Packs/Day Years [...] Sign Reading Time Taken Comments Blood Pressure 112/52 07/28/2021 11:28 AM PDT Pulse 68 07/28/2021 11:28 AM PDT Temperature - - Respiratory Rate - - Oxygen Saturation - - Inhaled Oxygen Concentration - - Weight 75.8 kg (167 lb) 07/28/2021 11:28 AM PDT Height 162.6 cm (5' 4) 07/28/2021 11:28 AM PDT Body Mass Index 28.67 07/28/2021 11:28 AM PDT Plan of Treatment Health Maintenance Due Date Last Done Comments CT Colonography 1959 Colonoscopy 1959 Colorectal Cancer Screening 1959 Disability Screening 1959 FIT-DNA (COLOGUARD) 1959 Hepatitis C Screening 1959 Sigmoidoscopy 1959 HIV Screening 08/23/1974 Pap Smear 08/23/1980 Cervical Cancer Screening 08/23/1989 HPV/COTEST 08/23/1989 FIT (FOBT) 08/23/2004 Pneumococcal 50+ Years (1 of 1 - PCV) 08/23/2009 Zoster (1 of 2) 08/23/2009 Lipid Panel (Cholesterol Screening) 02/08/2021 02/09/2016, 07/07/2013 DTaP/Tdap/Td Vaccine (2 - Td or Tdap) 09/22/2023 09/21/2013 Drug, Alcohol, and Depressio n Screening 04/22/2024 SOGIE 04/22/2024 Osteoporosis Screening 08/23/2024 Covid-19 Vaccine (1 - 2024-2 6 season) 2024 Influenza Vaccine (#1) 2024 0, 01/17/2019, 01/27/2018, Additional history exists RSV Vaccines (1 - 1-dose 75+ series) 08/23/2034 Procedures Procedure Name Priority Date/Time Associated Diagnosis Comments LIPID PANEL Routine 02/09/2016 8:45 AM PDT Radiculopathy Headache Other fatigue Cervicalgia from Last 3 Months or Most Recently Relevant to Health Maintenance Results * (ABNORMAL) Lipid Panel (02/09/2016 8:45 AM PDT) Cholesterol 242(H) <200 mg/dL 02/09/2016 7:17 PM PDT [facility] Comment: Desireable: <200 Borderline: 200-239 High: > 239 Triglycerides 52 <150 mg/dL 02/09/2016 7:17 PM PDT [facility] Comment: Normal: <150 Borderline: 150-199 High: 200-499 Very High: > or = 500 HDL Cholesterol 85 >=40 mg/dL 02/09/2016 7:17 PM PDT [facility] Comment: Low: <40 (High risk) Normal: 40-59 High: > or = 60 (Low risk) LDL, Calculated ([place]ewald) 147(H) <100 mg/dL 02/09/2016 7:17 PM PDT [facility] Comment: Optimal: <100 Near Optimal: 100-129 Borderline: 130-159 High: 160-189 Very high: >189 Non-HDL Cholesterol 157(H) <130 mg/dL 02/09/2016 7:17 PM PDT [facility] Comment: Desirable: <130 Borderline: 130-159 High: 160-189 Very High: > or = 190 Blood 02/09/2016 8:45 AM PDT 02/09/2016 6:12 PM PDT us Ronaldo Gibbs MD LAB BLOOD ORDERABLES Final Res[facility] lt [facility] [address] [place] [address] from Last 3 Months or Most Recently Relevant to Health Maintenance Insurance [facility] [employer] [place] Care Teams Operational Risk Consultant Relationship Specialty Start Date End Date Ronaldo Gibbs MD [address] [place] [id number] PCP - General Family Medicine 07/18/21
== END 2025-03-10 11:31 | disposition home or self-care (01) ==
LOC: RAD 09:49
PROVIDERS: PCP Family Medicine; Referring Provider Family Medicine; Visit Provider Physical Medicine & Rehabilitation
DX: M54.13 Radiculopathy, cervicothoracic region (principal)
CPT/HCPCS: 62321; J1100